=== PATIENT | female | born 1965 | race Caucasian/White ===

== ENCOUNTER 2017-06-27 23:34 | Inpatient (IN) | payer MEDICARE ==
[~2017-06-27] VITALS: Ht 162.6 cm; Wt 59.1 kg
[~2017-06-27 23:34] MED LIST: ALBUTEROL1.25 MG/3 INH; AUGMENTIN 875-11 TAB PO; B12; FOLIC ACID1 MG PO; IPRAT-ALBUT 0.5-3 ML UPD; K-DUR20 MEQ PO; MIRALAX17 GM PO; MULTI-DAY VITAM1 TAB PO; ONDANSETRON4 MG/2 M3 PO; OXYCODONE HCL10 MG PO; PEPCID20 MG PO; POTASSIUM99 M1 PO; VALIUM5 MG PO; VITAMIN B-1000 MCG/M IM; XANAX0.5 MG PO; XANAX1 MG PO; ZOFRAN4 MG PO
[2017-06-28] VITALS (13 sets, daily range): BP systolic 109–131; BP diastolic 54–87; Ht 162.6 cm; Wt 59.1 kg
[2017-06-28 00:09] LABS: BASOPHILS 0.2 % (0-2); EOSINOPHILS 3.4 % (0-7); LYMPHOCYTES 16.5 % (15-50); MCHC 25.8 g/dL (31.0-37.0); MCV 70.2 fL (80.0-100.0); MONOCYTES 11.3 % (2-11); NEUTROPHILS 68.6 % (40-80); RDW 22.8 % (11.5-14.5); WBC 4.1 10x3/uL (4.8-10.8)
[2017-06-28 00:27] LABS: HEMOGLOBIN 3.1 g/dL (12-16); MCH 18.1 pg (26.0-34.0); PLATELET COUNT 274 10x3/uL (130-400); RBC 1.71 10x6/uL (4.00-5.40)
[2017-06-28 00:39] LABS: ALBUMIN 3.1 g/dL (3.4-5.0); ALKALINE PHOSPHATASE 76 U/L (46-116); ALT (SGPT) 9 U/L (10-68); BILIRUBIN - TOTAL 0.13 mg/dL (0.2-1.3); CALC OSMOLALITY 283 mosm/kg (275-300); CALCIUM 8.1 mg/dL (8.5-10.1); CARBON DIOXIDE 22.9 mmol/L (21.0-32.0); CHLORIDE - SERUM 110 mmol/L (98-107); CREATININE - SERUM 0.8 mg/dL (0.6-1.3); GLUCOSE 89 mg/dL (74-106); POTASSIUM - SERUM 3.3 mmol/L (3.5-5.1); SODIUM 142 mmol/L (136-145); UREA NITROGEN 19 mg/dL (7-18); eGFR NON AFRICAN AMERICAN 80 mL/min (90-120)
[2017-06-28] MEDS ORDERED: NEURONTIN 300300 MG PO (03:02)
--- NOTE | 2017-06-28 10:24 | NUR ---
AT APPROXIMATELY 0730 PATIENT 2ND BLOOD TRANSFUSION WAS COMPLETE. 3RD BAG RECIEVED FROM LAB. VITAL SIGNS STABLE AND WITHIN NORMAL LIMITS.
[2017-06-28 12:04] LABS: APPEARANCE CLEAR (CLEAR); BILIRUBIN NEGATIVE (NEGATIVE); COLOR STRAW (YELLOW); GLUCOSE NEGATIVE (NEGATIVE); KETONE NEGATIVE (NEGATIVE); NITRITE NEGATIVE (NEGATIVE); PROTEIN NEGATIVE (NEGATIVE); UROBILINOGEN NORMAL (NORMAL)
--- NOTE | 2017-06-28 14:01 | NUR ---
BLOOD TRANSFUSION COMPLETE. LAB CALLED TO VERIFY ALL 3 UNITS WERE DELIVERED. VITAL SIGNS STABLE AND WITHIN NORMAL LIMITS. PATIENT RESTING QUIETLY IN BED.
--- NOTE | 2017-06-28 19:35 | NUR ---
A&O, ASSESSMENT COMPLETE, DENIES NEEDS, BED LOWEST POSITION, CALL LIGHT IN REACH, WILL CONTINUE TO MONITOR
[2017-06-29] VITALS (22 sets, daily range): BP systolic 97–137; BP diastolic 45–79
--- NOTE | 2017-06-29 02:00 | NUR ---
PT RESTING IN BED WITH NO DISTRESS. RESPIRATIONS EVEN AND UNLABORED. SIDE RAILS X 2. BED IS LOW. CALL LIGHT IN REACH.
[2017-06-29 06:25] LABS: CALC OSMOLALITY 285 mosm/kg (275-300); CALCIUM 7.7 mg/dL (8.5-10.1); CARBON DIOXIDE 26.4 mmol/L (21.0-32.0); CHLORIDE - SERUM 110 mmol/L (98-107); CREATININE - SERUM 0.6 mg/dL (0.6-1.3); GLUCOSE 114 mg/dL (74-106); POTASSIUM - SERUM 3.4 mmol/L (3.5-5.1); SODIUM 144 mmol/L (136-145); eGFR NON AFRICAN AMERICAN > 90 mL/min (90-120)
[2017-06-29 06:28] LABS: UREA NITROGEN 8 mg/dL (7-18)
[2017-06-29 06:41] LABS: BASOPHILS 0 % (0-2); EOSINOPHILS 8.5 % (0-7); IMMATURE GRANULOCYTES 0.8 % (0-5); LYMPHOCYTES 17.4 % (15-50); MCH 23.2 pg (26.0-34.0); MCHC 30.4 g/dL (31.0-37.0); MEAN PLATELET VOLUME 8.9 fL (7.4-10.4); MONOCYTES 14.6 % (2-11); NEUTROPHILS 58.7 % (40-80); PLATELET COUNT 238 10x3/uL (130-400); RDW 19.6 % (11.5-14.5); WBC 3.9 10x3/uL (4.8-10.8)
[2017-06-29 06:47] LABS: HEMATOCRIT 22.7 % (36.0-48.0); MCV 76.4 fL (80.0-100.0); RBC 2.97 10x6/uL (4.00-5.40)
[2017-06-29 06:51] LABS: HEMOGLOBIN 6.9 g/dL (12-16)
--- NOTE | 2017-06-29 08:05 | NUR ---
TRANSFUSION INITIATED. VSS. A/O X3. NO C/O
--- NOTE | 2017-06-29 08:08 | NUR ---
AWAKE AND ALERT. ORIENTED X3. NO C/O VOICED. LUNGS ARE CLEAR BILATERALLY, NO COUGH NOTED. SKIN IS INTAC WITHOUT REDNESS. RIGHT PORT PATENT WITHOUT REDNESS AT INSERTION SITE. DENIES NEEDS.
--- NOTE | 2017-06-29 08:15 | NUR ---
TRANSFUSION CONTINUES WITHOUT COMPLICATIONS. VSS.
--- NOTE | 2017-06-29 09:15 | NUR ---
TRANSFUSION CONTINUES WITHOUT DIFFICULTY. VSS.
--- NOTE | 2017-06-29 10:40 | NUR ---
TRANSFUSION COMPLETED. VSS. NO SIGNS OF REACTION.
--- NOTE | 2017-06-29 13:25 | NUR ---
REQUESTE AND GIVEN 1MG DILAUDID SLOW IVP FOR C/O ABDOMINAL PAIN LEVEL 8. WILL MONITOR. BLOOD DRAWN FOR H/H.
[2017-06-29 13:29] LABS: HEMATOCRIT 25.1 % (36.0-48.0); HEMOGLOBIN 7.8 g/dL (12-16)
--- NOTE | 2017-06-29 15:17 | NUR ---
SECOND UNIT PRBC UP AT THIS TIME. VSS.
--- NOTE | 2017-06-29 15:30 | NUR ---
TRANSFUSION CONTINUES WITHOUT SIGNS OF REACTIONS. VSS.
--- NOTE | 2017-06-29 16:30 | NUR ---
TRANSFUSION CONTINUES WITHOUT DIFFICULTY. VSS.
--- NOTE | 2017-06-29 17:30 | NUR ---
FRIENDS BROUGHT IN FOOD. ATE ALL OF MEAL. TRANSFUSIONS CONTINUES WITHOUT DIFFICULTY. VSS.
--- NOTE | 2017-06-29 17:45 | NUR ---
TRANSFUSION COMPLETED WITHOUT REACTIONS.
--- NOTE | 2017-06-29 18:19 | NUR ---
GIVEN 4MG MORPHINE SLOW IVP PROIR TO SUPPER FOR C/O RIGHT SHOULDER NECK PAIN. WILL MONITOR. ATE ALL OF SUPPER HE WANTED. DENIES NEEDS. NO CHANGES NOTED.
--- NOTE | 2017-06-29 19:29 | NUR ---
ANDREE PATIENT'S BLOOD VIA HER PORT. PORT IS DIFFICULT TO DRAW AND FLUSH. PATIENT RESTING IN BED AND DENIES NEEDS AT THIS TIME. BED IN LOWEST POSITION AND CALL LIGHT WITHIN REACH. ENCOURAGED THE PATIENT TO CALL IF SHE HAS NEEDS.
[2017-06-29 19:46] LABS: HEMATOCRIT 30.7 % (36.0-48.0); HEMOGLOBIN 9.4 g/dL (12-16)
[2017-06-30 04:24] VITALS: BP 140/82
[2017-06-30 07:01] LABS: BASOPHILS 0.2 % (0-2); EOSINOPHILS 6.8 % (0-7); HEMATOCRIT 31.8 % (36.0-48.0); IMMATURE GRANULOCYTES 0.2 % (0-5); LYMPHOCYTES 14.3 % (15-50); MCH 24.9 pg (26.0-34.0); MCHC 31.4 g/dL (31.0-37.0); MONOCYTES 14.4 % (2-11); NEUTROPHILS 64.1 % (40-80); PLATELET COUNT 191 10x3/uL (130-400); RDW 19.1 % (11.5-14.5)
[2017-06-30 07:04] LABS: MCV 79.3 fL (80.0-100.0); RBC 4.01 10x6/uL (4.00-5.40); WBC 5.3 10x3/uL (4.8-10.8)
[2017-06-30 07:34] LABS: ALBUMIN 2.6 g/dL (3.4-5.0); ALKALINE PHOSPHATASE 86 U/L (46-116); ALT (SGPT) 10 U/L (10-68); BILIRUBIN - TOTAL 0.17 mg/dL (0.2-1.3); CALC OSMOLALITY 281 mosm/kg (275-300); CALCIUM 7.5 mg/dL (8.5-10.1); CARBON DIOXIDE 24.7 mmol/L (21.0-32.0); CHLORIDE - SERUM 110 mmol/L (98-107); CREATININE - SERUM 0.6 mg/dL (0.6-1.3); GLUCOSE 90 mg/dL (74-106); POTASSIUM - SERUM 4.1 mmol/L (3.5-5.1); PROTEIN - SERUM 5.3 g/dL (6.4-8.2); SODIUM 142 mmol/L (136-145); eGFR NON AFRICAN AMERICAN > 90 mL/min (90-120)
[2017-06-30 07:45] LABS: UREA NITROGEN 11 mg/dL (7-18)
--- NOTE | 2017-06-30 08:00 | NUR ---
ASSESSMENT PER FLOW SHEET.PT WITHOUT DISTRESS.CALL LIGHT IN REACH
[2017-06-30 08:20] VITALS: BP 142/73
--- NOTE | 2017-06-30 12:03 | NUR ---
DISCHARGE INSTRUCTIONS,STATES UNDERSTANDING.PORT FLUSHED WITH SALINE AND FLUSHED WITH HEPARIN PER PROTOCOL.
[2017-06-30 12:17] VITALS: BP 119/70
--- NOTE | 2017-06-30 12:49 | NUR ---
LEFT UNIT VIA WHEELCHAIR
== END 2017-06-30 12:49 | disposition home or self-care (01) | DRG 812 ==
LOC: D.ER 23:34 → D.MS 06-28 01:07
PROVIDERS: Emergency Medicine; Internal Medicine Hematology & Oncology; ADMIT Family Medicine
DX: D64.9 Anemia, unspecified (principal); D46.9 Myelodysplastic syndrome, unspecified; G89.29 Other chronic pain; K59.00 Constipation, unspecified

== ENCOUNTER 2017-08-10 01:04 | Observation (INO) | payer MEDICARE ==
[2017-06-28 16:35] VITALS: BMI 22.3
--- NOTE | ~2017-08-10 | HP ---
PATIENT: VIKAS SHERWOOD MEDICAL RECORD: [id number] ACCOUNT: [id number] LOCATION:[place] : 63 ADMISSION DATE: 08/10/17 HISTORY AND PHYSICAL EXAMINATION HISTORY OF PRESENT ILLNESS: Ms. Sherwood is a 52-year-old white female with no myelodysplastic syndrome with experiencing increased shortness of breath and swelling over the last few days. Her primary care physician is Dr. Parrish in [place] and she sees an oncologist there. She was admitted here last month for similar type complaints. Her hemoglobin upon admission this evening is 3.1 about where it was last time. She is being admitted for transfusion. PAST MEDICAL HISTORY: Significant for known myelodysplastic syndrome. PAST SURGICAL HISTORY: She has had a hysterectomy in 2001, breast implants with implants out with subsequent removal, thumb surgery, port access to left chest. ALLERGIES OR INTOLERANCES: Include TRAMADOL, CODEINE, DIPHENHYDRAMINE, KETOROLAC, COMPAZINE. HOME MEDICATIONS: Potassium 20 mEq b.i.d., multivitamin, Roxicodone 15 mg q.6 hours, Zofran p.r.n. FAMILY HISTORY: Noncontributory. SOCIAL HISTORY: The patient had recently moved back to [facility], but her primary care and translator interpreter/oncologist are still in [place]. REVIEW OF SYSTEMS: She denies fever. She does complain of increasing weakness and fatigue. No chest pain, but shortness of breath and bilateral swelling. PHYSICAL EXAMINATION: GENERAL: She is in no acute distress. She does complain of generalized pain. NECK: Soft and supple. HEART: Regular. LUNGS: Clear. ABDOMEN: Soft. EXTREMITIES: Lower extremities reveal no edema. She does have a rash on her trunk. IMPRESSION: Myelodysplastic syndrome with severe anemia with a hemoglobin of 3.1. PLAN: Transfuse to 8. We will diurese in between. Triamcinolone ointment for rash. We will be following up with her regular primary care physician and oncologist upon discharge. TRANSINT:[id number] Voice Confirmation ID: [id number] DOCUMENT ID: [id number] HISTORY AND PHYSICAL [id number] VIKAS SHERWOOD LATOSHA AGUILA DO at 1144 CC: [id number] DICTATION DATE: 08/10/17 0956 BAKERY WORKER: 08/10/17 1113 [facility] [address] [place], [facility]
[~2017-08-10 01:04] MED LIST changes: +NEURONTIN 300300 MG PO
[2017-08-10 01:56] LABS: BASOPHILS 0 % (0-2); EOSINOPHILS 4.1 % (0-7); IMMATURE GRANULOCYTES 0.2 % (0-5); LYMPHOCYTES 14.6 % (15-50); MCHC 24.8 g/dL (31.0-37.0); MCV 70.6 fL (80.0-100.0); MEAN PLATELET VOLUME 8.9 fL (7.4-10.4); MONOCYTES 13.7 % (2-11); NEUTROPHILS 67.4 % (40-80); RDW 20.8 % (11.5-14.5); WBC 4.1 10x3/uL (4.8-10.8)
[2017-08-10 02:04] LABS: HEMATOCRIT 12.5 % (36.0-48.0); HEMOGLOBIN 3.1 g/dL (12-16); MCH 17.5 pg (26.0-34.0); PLATELET COUNT 391 10x3/uL (130-400); RBC 1.77 10x6/uL (4.00-5.40)
[2017-08-10 02:07] LABS: ALBUMIN 2.7 g/dL (3.4-5.0); ALKALINE PHOSPHATASE 81 U/L (46-116); ALT (SGPT) 12 U/L (10-68); CALC OSMOLALITY 279 mosm/kg (275-300); CALCIUM 7.4 mg/dL (8.5-10.1); CARBON DIOXIDE 25.2 mmol/L (21.0-32.0); CHLORIDE - SERUM 108 mmol/L (98-107); CREATININE - SERUM 0.6 mg/dL (0.6-1.3); GLUCOSE 98 mg/dL (74-106); POTASSIUM - SERUM 3.2 mmol/L (3.5-5.1); SODIUM 141 mmol/L (136-145); UREA NITROGEN 10 mg/dL (7-18); eGFR NON AFRICAN AMERICAN > 90 mL/min (90-120)
[2017-08-10 12:19] LABS: APPEARANCE CLEAR (CLEAR); BILIRUBIN NEGATIVE (NEGATIVE); COLOR YELLOW (YELLOW); GLUCOSE NEGATIVE (NEGATIVE); KETONE NEGATIVE (NEGATIVE); NITRITE NEGATIVE (NEGATIVE); PROTEIN NEGATIVE (NEGATIVE); UROBILINOGEN NORMAL (NORMAL)
[2017-08-10 12:24] LABS: RED CELLS - URINE 0-5 /hpf (0-5); WHITE CELLS - URINE 0-5 /hpf (0-5)
[2017-08-10 12:26] LABS: BACTERIA MODERATE /hpf (NONE SEEN); EPITHELIAL CELLS 0-5 /hpf (0-5)
[2017-08-10 12:30] LABS: MUCUS <1+ /lpf (NONE SEEN)
[2017-08-10 15:35] LABS: BASOPHILS 0.3 % (0-2); EOSINOPHILS 6.7 % (0-7); IMMATURE GRANULOCYTES 0.3 % (0-5); LYMPHOCYTES 15.2 % (15-50); MCH 23.3 pg (26.0-34.0); MCHC 30.5 g/dL (31.0-37.0); MEAN PLATELET VOLUME 9.2 fL (7.4-10.4); MONOCYTES 12.3 % (2-11); NEUTROPHILS 65.2 % (40-80); PLATELET COUNT 361 10x3/uL (130-400); RDW 20.3 % (11.5-14.5); WBC 3.9 10x3/uL (4.8-10.8)
[2017-08-10 15:37] LABS: HEMATOCRIT 24.3 % (36.0-48.0); MCV 76.7 fL (80.0-100.0); RBC 3.17 10x6/uL (4.00-5.40)
[2017-08-10 15:38] LABS: HEMOGLOBIN 7.7 g/dL (12-16)
[2017-08-10 21:30] VITALS: BP 135/66
[2017-08-11 01:13] VITALS: BP 118/68
[2017-08-11 05:25] VITALS: BP 121/74
[2017-08-11 07:58] VITALS: BP 133/76
[2017-08-11 08:32] LABS: BASOPHILS 0 % (0-2); EOSINOPHILS 5.4 % (0-7); HEMATOCRIT 29.1 % (36.0-48.0); IMMATURE GRANULOCYTES 0.3 % (0-5); LYMPHOCYTES 7.6 % (15-50); MCH 24.5 pg (26.0-34.0); MCHC 30.9 g/dL (31.0-37.0); MEAN PLATELET VOLUME 9.5 fL (7.4-10.4); MONOCYTES 9.9 % (2-11); NEUTROPHILS 76.8 % (40-80); PLATELET COUNT 361 10x3/uL (130-400); RBC 3.67 10x6/uL (4.00-5.40)
[2017-08-11 08:47] LABS: MCV 79.3 fL (80.0-100.0); WBC 6.5 10x3/uL (4.8-10.8)
[2017-08-11 12:26] VITALS: BP 114/67
[2017-08-11] MEDS ORDERED: KENALOG 0.1 % O15 GM TOPICAL (13:31)
== END 2017-08-11 14:23 | disposition home or self-care (01) ==
LOC: D.ER 01:04 → D.MS 16:19 → OBSVTIME 16:19 → D.MS 08-11 14:23
PROVIDERS: Family Medicine
DX: D46.9 Myelodysplastic syndrome, unspecified (principal); K59.00 Constipation, unspecified; G89.29 Other chronic pain

== ENCOUNTER 2017-08-31 16:18 | Observation (INO) | payer MEDICARE | END 2017-09-02 15:13 | disposition home or self-care (01) | LOC: D.ER 16:18 → D.SDCHOLD 19:04 → D.MS 20:20 | DX: D64.9 Anemia, unspecified (principal); D46.9 Myelodysplastic syndrome, unspecified ==

== ENCOUNTER 2017-09-29 18:59 | Inpatient (IN) | payer MEDICARE ==
[2017-09-01 12:35] VITALS: BMI 22.3
--- NOTE | ~2017-09-29 | HP ---
PATIENT: VIKAS ESCOBEDO MEDICAL RECORD: [id number] ACCOUNT: [id number] LOCATION:[facility]- : 63 ADMISSION DATE: 09/29/17 HISTORY AND PHYSICAL EXAMINATION DATE OF ADMISSION: 09/29/2017 CHIEF COMPLAINT: Fatigue, weakness. HISTORY OF PRESENT ILLNESS: The patient is a 52-year-old female with longstanding history of having myelodysplasia syndrome. The patient states she has had over 4 units packed red blood cells over the past 7 years. She states that she has become increasingly weak. She apparently had been living in [place], had moved to [place] to be with her mother, and presents to the Emergency Room for evaluation. The patient was found to be profoundly anemic and it was felt the patient should be admitted. PAST MEDICAL HISTORY: She has had a history of having G1, P1. She has had an umbilical hernia repair. She has also had breast augmentation. She has had these since removed. She has also had dental implants which have been removed. She does report having chronic back pain as well as bone pain and problems with anxiety as well. FAMILY HISTORY: Father of pancreatic cancer in his 60. Mother apparently is still living. HABITS: She states that she stopped smoking some 7 years ago, has been occasional consumer of alcoholic beverages. MEDICATIONS: Include gabapentin 300 mg 1 p.o. b.i.d., oxycodone 15 mg q.4 hours p.r.n. pain, Valium 10 mg 1 every 8 hours p.r.n. anxiety, potassium chloride 20 mEq 1 p.o. b.i.d., triamcinolone applied topically sparingly b.i.d. ALLERGIES: COMPAZINE, CODEINE. SOCIAL HISTORY: The patient is . She is a mother of 1. Currently, is unemployed. She states that she is medically disabled. REVIEW OF SYSTEMS: CONSTITUTIONAL: She denies any headaches, seizures, or syncope. She denies change in visual or auditory acuity. PULMONARY: She has reported increasing shortness of breath. No cough, no congestion. CARDIOVASCULAR: She had no chest pain, palpitations, PND or orthopnea. GASTROINTESTINAL: No chronic nausea, vomiting, melena or hematochezia. GENITOURINARY: No urgency, frequency, or dysuria. PHYSICAL EXAMINATION: GENERAL: In the Emergency Room, the patient's temperature is 97.7, pulse 103, respirations 20, blood pressure 144/70. HEENT: Head is normocephalic. No lesions. Ears: TMs clear. Eyes: Pupils equal, round, reactive to light. Extraocular movements are intact. Nasal cavity, oral cavity and oropharynx clear. NECK: Supple. There is no adenopathy. HEART: Slight tachycardic. HISTORY AND PHYSICAL [id number] SCALLION,VIKAS A LUNGS: Clear. ABDOMEN: Soft, bowel sounds are positive. No organomegaly. EXTREMITIES: Lower extremities have trace pretibial edema. LABORATORY DATA: The patient had EKG showing normal sinus rhythm, rate was 90. Initially RBCs were 1.7. She had a hemoglobin 2.9, hematocrit was 11.9. Her platelets were 351. She had low MCV, MCHC. Also, she had sodium of 139, potassium 3.1, chloride 108, CO2 of 23.8, BUN9, creatinine 0.5, and blood sugar 119. Her albumin was low at 2.6. ASSESSMENT: Profound anemia felt to be secondary to myelodysplasia syndrome, history of inguinal hernia repair, history of bilateral breast augmentation with removal, history of dental implants with removal, chronic pain, and anxiety. PLAN: The patient will be admitted, typed and crossed and transfused. Continue to evaluate. TRANSINT:[id number] Voice Confirmation ID: [id number] DOCUMENT ID: [id number] ALBA BOWIE MD at 0719 CC: [id number] DICTATION DATE: 09/30/17 0643 SIFTING OPERATOR: 09/30/17 0958 DIS IN 09/30/17 [place] [id number] [place] [id number]
[~2017-09-29 18:59] MED LIST changes: +KENALOG 0.1 % O15 GM TOPICAL
[2017-09-29 20:19] LABS: APPEARANCE CLEAR (CLEAR); BILIRUBIN NEGATIVE (NEGATIVE); COLOR YELLOW (YELLOW); GLUCOSE NEGATIVE (NEGATIVE); KETONE NEGATIVE (NEGATIVE); NITRITE NEGATIVE (NEGATIVE); PH 6.5 (5.0-6.0); PROTEIN NEGATIVE (NEGATIVE); UROBILINOGEN NORMAL (NORMAL)
[2017-09-29 20:20] LABS: RED CELLS - URINE OCC /hpf (0-5); WHITE CELLS - URINE 0-5 /hpf (0-5)
[2017-09-29 20:21] LABS: BACTERIA MODERATE /hpf (NONE SEEN)
[2017-09-29 21:05] LABS: BASOPHILS 0 % (0-2); EOSINOPHILS 9.4 % (0-7); IMMATURE GRANULOCYTES 0.3 % (0-5); LYMPHOCYTES 18.5 % (15-50); MCHC 24.4 g/dL (31.0-37.0); MEAN PLATELET VOLUME 8.5 fL (7.4-10.4); MONOCYTES 14.1 % (2-11); NEUTROPHILS 57.7 % (40-80); RDW 22.3 % (11.5-14.5)
[2017-09-29 21:09] LABS: HEMATOCRIT 11.9 % (36.0-48.0); HEMOGLOBIN 2.9 g/dL (12-16); MCH 17.1 pg (26.0-34.0); PLATELET COUNT 351 10x3/uL (130-400)
[2017-09-29 21:16] LABS: ALBUMIN 2.6 g/dL (3.4-5.0); ALKALINE PHOSPHATASE 85 U/L (46-116); ALT (SGPT) 10 U/L (10-68); BILIRUBIN - TOTAL 0.11 mg/dL (0.2-1.3); CALC OSMOLALITY 277 mosm/kg (275-300); CALCIUM 7.8 mg/dL (8.5-10.1); CARBON DIOXIDE 23.8 mmol/L (21.0-32.0); CHLORIDE - SERUM 108 mmol/L (98-107); CREATININE - SERUM 0.6 mg/dL (0.6-1.3); GLUCOSE 119 mg/dL (74-106); POTASSIUM - SERUM 3.1 mmol/L (3.5-5.1); SODIUM 139 mmol/L (136-145); UREA NITROGEN 9 mg/dL (7-18); eGFR NON AFRICAN AMERICAN > 90 mL/min (90-120)
== END 2017-09-30 07:16 | disposition left against medical advice (07) | DRG 812 ==
LOC: D.ER 18:59 → D.EDHOLD 21:56
PROVIDERS: Family Medicine
DX: D46.4 Refractory anemia, unspecified (principal); F41.9 Anxiety disorder, unspecified; G89.29 Other chronic pain; Z87.891 Personal history of nicotine dependence

== ENCOUNTER 2018-06-09 21:40 | Inpatient (IN) | payer MEDICARE ==
[~2018-06-09] VITALS: Ht 162.6 cm; Wt 59.1 kg
--- NOTE | ~2018-06-09 | MORECARE ---
CASE MANAGEMENT DISCHARGE SUMMARY PATIENT: VIKAS ESCOBEDO UNIT: [id number] ADM DATE: 06/10/18 AGE: 52 : 63 SEX: F ROOM/BED: D.2228 AUTHOR: LINDA,DOC PHYSICIAN: REFERRING PHYSICIAN: FABY RAMOS MD DATE OF SERVICE: 06/10/18 Discharge Plan Patient Name: VIKAS ESCOBEDO Facility: [facility]:[place] : 1965 Planned Disposition: Home Anticipated Discharge Date: Discharge Date: Expected LOS: Initial Reviewer: [email or web address] Initial Review Date: 06/10/2018 Generated: 06/10/18 12:08 pm Comments DCP- Discharge Planning Updated by [email or web address]: Dee Weiss on 06/10/18 10:[address] Patient Name: VIKAS ESCOBEDO Admission Status: ER Accout number: [id number] Admission Date: 06-10-2018 : 1965 Admission Diagnosis: Attending: FABY RAMOS Current LOS: 1 Anticipated DC Date: Planned Disposition: Home Primary Insurance: MEDICARE A & B Discharge Planning Comments: CM met with patient, she is alone in the room. States she lives with her mother and is independent with all ADL's and IADL's. States she has a headache now and will meet later if I would like. States she does not know of any needs. CM will continue to follow and assist with discharge planning/needs. Sample Distributor: Dee Weiss DCPIA - Discharge Planning Initial Assessment Updated by [email or web address]: Dee Weiss on 06/10/18 11:00 am * Is the patient Alert and Oriented? Yes * How many steps to enter\exit or inside your home? 0/0 * Preadmission Environment Home with Family * ADLs Independent * Equipment None * List name and contact numbers for known caregivers / representatives who currently or will assist patient after discharge: LIO REHMAN - MOTHER - [phone] * Verbal permission to speak to the caregivers and representatives has been obtained from the patient. Yes * Community resources currently utilized None * Additional services required to return to the preadmission environment? No * Can the patient safely return to the preadmission environment? Yes * Has this patient been hospitalized within the prior 30 days at any hospital? No Last DP export: 06/10/18 10:01 Patient Name: VIKAS ESCOBEDO Page 64045 at 1108 All edits/amendments must be made on the electronic document DICTATION DATE: 06/10/181106 UROLOGIST MD: RAFA 06/10/181106 RPT#: [id number] DC DATE: STATUS: ADM IN [facility] [address] [place] [address] END OF REPORT
--- NOTE | ~2018-06-09 | MORECARE ---
CASE MANAGEMENT DISCHARGE SUMMARY PATIENT: VIKAS ESCOBEDO UNIT: [id number] ADM DATE: 06/10/18 AGE: 52 : 63 SEX: F ROOM/BED: D.2228 AUTHOR: TORREY MCKEON PHYSICIAN: REFERRING PHYSICIAN: FABY RAMOS MD DATE OF SERVICE: 06/10/18 Discharge Plan Patient Name: VIKAS ESCOBEDO Facility: [facility]:[place] : 1965 Planned Disposition: Home Anticipated Discharge Date: Discharge Date: Expected LOS: Initial Reviewer: [email or web address] Initial Review Date: 06/10/2018 Generated: 06/10/18 12:01 pm DCPIA - Discharge Planning Initial Assessment Updated by [email or web address]: Dee Weiss on 06/10/18 11:00 am * Is the patient Alert and Oriented? Yes * How many steps to enter\exit or inside your home? 0/0 * Preadmission Environment Home with Family * ADLs Independent * Equipment None * List name and contact numbers for known caregivers / representatives who currently or will assist patient after discharge: LIO REHMAN [facility] [phone] * Verbal permission to speak to the caregivers and representatives has been obtained from the patient. Yes * Community resources currently utilized None * Additional services required to return to the preadmission environment? No * Can the patient safely return to the preadmission environment? Yes * Has this patient been hospitalized within the prior 30 days at any hospital? No Patient Name: VIKAS ESCOBEDO Page 92556 at 1101 All edits/amendments must be made on the electronic document DICTATION DATE: 06/10/18 1100 BANKING PIN ADJUSTER: RAFA 06/10/18 1100 RPT#: [id number] DC DATE: STATUS: ADM IN [facility] [address] [place] [address] END OF REPORT
--- NOTE | ~2018-06-09 | MORECARE ---
CASE MANAGEMENT DISCHARGE SUMMARY PATIENT: VIKAS ESCOBEDO UNIT: [id number] ADM DATE: 06/10/18 AGE: 52 : 63 SEX: F ROOM/BED: D.2228 AUTHOR: LINDA,DOC PHYSICIAN: REFERRING PHYSICIAN: FABY RAMOS MD DATE OF SERVICE: 06/14/18 Discharge Plan Patient Name: IVKAS ESCOBEDO Facility: [facility]:[place] : 1965 Planned Disposition: Home Anticipated Discharge Date: Discharge Date: 06/12/2018 Expected LOS: 0 Initial Reviewer: [email or web address] Initial Review Date: 06/10/2018 Generated: 06/14/18 12:45 pm Comments DCP- Discharge Planning Updated by [email or web address]: Dee Weiss on 06/10/18 10:[address] Patient Name: VIKAS ESCOBEDO Admission Status: ER Accout number: [id number] Admission Date: 06-10-2018 : 1965 Admission Diagnosis: Attending: FABY RAMOS Current LOS: 1 Anticipated DC Date: Planned Disposition: Home Primary Insurance: MEDICARE A & B Discharge Planning Comments: CM met with patient, she is alone in the room. States she lives with her mother and is independent with all ADL's and IADL's. States she has a headache now and will meet later if I would like. States she does not know of any needs. CM will continue to follow and assist with discharge planning/needs. Supervisor Metalizing: Dee Weiss DCPIA - Discharge Planning Initial Assessment Updated by [email or web address]: Dee Weiss on 06/10/18 11:00 am * Is the patient Alert and Oriented? Yes * How many steps to enter\exit or inside your home? 0/0 * Preadmission Environment Home with Family * ADLs Independent * Equipment None * List name and contact numbers for known caregivers / representatives who currently or will assist patient after discharge: LIO REHMAN - MOTHER - [phone] * Verbal permission to speak to the caregivers and representatives has been obtained from the patient. Yes * Community resources currently utilized None * Additional services required to return to the preadmission environment? No * Can the patient safely return to the preadmission environment? Yes * Has this patient been hospitalized within the prior 30 days at any hospital? No Last DP export: 06/10/18 10:08 Patient Name: VIKAS ESCOBEDO Page 60877 at 1145 All edits/amendments must be made on the electronic document DICTATION DATE: 06/14/18 1145 COOKY PACKER: RAFA 06/14/18 1145 RPT#: [id number] DC DATE:06/12/18 STATUS: DIS IN [facility] [address] [place] [address] END OF REPORT
[2018-06-09 22:24] LABS: BASOPHILS 0 % (0-2); EOSINOPHILS 4.5 % (0-7); IMMATURE GRANULOCYTES 0.3 % (0-5); LYMPHOCYTES 14.5 % (15-50); MCHC 25.2 g/dL (31.0-37.0); MCV 71.5 fL (80.0-100.0); MEAN PLATELET VOLUME 8.1 fL (7.4-10.4); MONOCYTES 13.5 % (2-11); NEUTROPHILS 67.2 % (40-80); PLATELET COUNT 345 10x3/uL (130-400); RDW 21.6 % (11.5-14.5); WBC 2.9 10x3/uL (4.8-10.8)
[2018-06-09 22:27] LABS: RBC 1.72 10x6/uL (4.00-5.40)
[2018-06-09 22:28] LABS: HEMOGLOBIN 3.1 g/dL (12-16)
[2018-06-09 22:29] LABS: ALBUMIN 2.5 g/dL (3.4-5.0); ALKALINE PHOSPHATASE 74 U/L (46-116); ALT (SGPT) 11 U/L (10-68); BILIRUBIN - TOTAL 0.07 mg/dL (0.2-1.3); CALC OSMOLALITY 283 mosm/kg (275-300); CALCIUM 7.5 mg/dL (8.5-10.1); CARBON DIOXIDE 26.7 mmol/L (21.0-32.0); CHLORIDE - SERUM 109 mmol/L (98-107); CREATININE - SERUM 0.8 mg/dL (0.6-1.3); GLUCOSE 100 mg/dL (74-106); HEMATOCRIT 12.3 % (36.0-48.0); POTASSIUM - SERUM 3.4 mmol/L (3.5-5.1); PROTEIN - SERUM 5.3 g/dL (6.4-8.2); SODIUM 143 mmol/L (136-145); UREA NITROGEN 11 mg/dL (7-18); eGFR NON AFRICAN AMERICAN 79 mL/min (90-120)
[2018-06-09 23:57] VITALS: BP 112/55; BMI 22.3
[2018-06-10] VITALS (14 sets, daily range): BP systolic 98–142; BP diastolic 52–81
[2018-06-10 09:44] LABS: BASOPHILS 0 % (0-2); EOSINOPHILS 3.3 % (0-7); HEMATOCRIT 23.2 % (36.0-48.0); LYMPHOCYTES 12.1 % (15-50); MCH 24.7 pg (26.0-34.0); MCHC 31.5 g/dL (31.0-37.0); MCV 78.4 fL (80.0-100.0); MEAN PLATELET VOLUME 8.3 fL (7.4-10.4); MONOCYTES 16.1 % (2-11); NEUTROPHILS 68.5 % (40-80); PLATELET COUNT 266 10x3/uL (130-400); RBC 2.96 10x6/uL (4.00-5.40); RDW 19.5 % (11.5-14.5); WBC 3.1 10x3/uL (4.8-10.8)
[2018-06-10 09:46] LABS: HEMOGLOBIN 7.3 g/dL (12-16)
[2018-06-10 09:54] LABS: % SATURATION 44 % (15-55); IRON 140 ug/dl (35-150); TOTAL IRON BIND CAPACITY 317 ug/dl (260-445); UNSAT IRON BIND CAPACITY 177 ug/dl (150-375)
[2018-06-10 10:10] LABS: GLUCOSE 104 mg/dL (74-106)
[2018-06-10 10:11] LABS: CALC OSMOLALITY 284 mosm/kg (275-300); CALCIUM 7.4 mg/dL (8.5-10.1); CARBON DIOXIDE 26.4 mmol/L (21.0-32.0); CHLORIDE - SERUM 109 mmol/L (98-107); CREATININE - SERUM 0.6 mg/dL (0.6-1.3); POTASSIUM - SERUM 3.1 mmol/L (3.5-5.1); SODIUM 144 mmol/L (136-145); UREA NITROGEN 8 mg/dL (7-18); eGFR NON AFRICAN AMERICAN > 90 mL/min (90-120)
[2018-06-10 14:21] LABS: HEMATOCRIT 27.3 % (36.0-48.0); HEMOGLOBIN 8.6 g/dL (12-16)
[2018-06-11 00:24] VITALS: BP 146/86
[2018-06-11 04:50] LABS: BASOPHILS 0.3 % (0-2); HEMATOCRIT 26.6 % (36.0-48.0); HEMOGLOBIN 8.3 g/dL (12-16); LYMPHOCYTES 14.5 % (15-50); MCH 24.9 pg (26.0-34.0); MCHC 31.2 g/dL (31.0-37.0); MCV 79.6 fL (80.0-100.0); MEAN PLATELET VOLUME 9.1 fL (7.4-10.4); MONOCYTES 19.8 % (2-11); NEUTROPHILS 57.4 % (40-80); PLATELET COUNT 253 10x3/uL (130-400); RBC 3.34 10x6/uL (4.00-5.40); RDW 19.7 % (11.5-14.5); WBC 3.4 10x3/uL (4.8-10.8)
[2018-06-11 04:56] VITALS: BP 133/77
[2018-06-11 04:57] LABS: CALC OSMOLALITY 280 mosm/kg (275-300); CARBON DIOXIDE 29.1 mmol/L (21.0-32.0); CHLORIDE - SERUM 107 mmol/L (98-107); CREATININE - SERUM 0.6 mg/dL (0.6-1.3); GLUCOSE 99 mg/dL (74-106); POTASSIUM - SERUM 3.6 mmol/L (3.5-5.1); SODIUM 142 mmol/L (136-145); UREA NITROGEN 7 mg/dL (7-18); eGFR NON AFRICAN AMERICAN > 90 mL/min (90-120)
[2018-06-11 09:10] VITALS: BP 106/60
[2018-06-11 12:13] VITALS: BP 114/66
[2018-06-11 12:58] VITALS: Ht 162.6 cm; Wt 59.1 kg
[2018-06-11 14:44] VITALS: BP 130/76
[2018-06-11 15:23] LABS: % SATURATION 3 % (15-55); IRON 13 ug/dl (35-150); TOTAL IRON BIND CAPACITY 359 ug/dl (260-445); UNSAT IRON BIND CAPACITY 346 ug/dl (150-375)
[2018-06-11 20:47] VITALS: BP 117/70
[2018-06-12 01:03] VITALS: BP 120/69
[2018-06-12 05:23] LABS: BASOPHILS 0 % (0-2); HEMATOCRIT 28.4 % (36.0-48.0); HEMOGLOBIN 8.8 g/dL (12-16); IMMATURE GRANULOCYTES 0.4 % (0-5); LYMPHOCYTES 23.5 % (15-50); MCH 24.9 pg (26.0-34.0); MCV 80.5 fL (80.0-100.0); MEAN PLATELET VOLUME 8.9 fL (7.4-10.4); MONOCYTES 23.1 % (2-11); RBC 3.53 10x6/uL (4.00-5.40); RDW 20.8 % (11.5-14.5); WBC 2.7 10x3/uL (4.8-10.8)
[2018-06-12 05:25] LABS: PLATELET COUNT 194 10x3/uL (130-400)
[2018-06-12 05:58] VITALS: BP 122/71
[2018-06-12 05:58] LABS: CALC OSMOLALITY 279 mosm/kg (275-300); CARBON DIOXIDE 30.5 mmol/L (21.0-32.0); CHLORIDE - SERUM 106 mmol/L (98-107); CREATININE - SERUM 0.6 mg/dL (0.6-1.3); GLUCOSE 96 mg/dL (74-106); POTASSIUM - SERUM 3.8 mmol/L (3.5-5.1); SODIUM 141 mmol/L (136-145); eGFR NON AFRICAN AMERICAN > 90 mL/min (90-120)
[2018-06-12 06:00] LABS: UREA NITROGEN 11 mg/dL (7-18)
[2018-06-12 11:28] VITALS: BP 126/72
== END 2018-06-12 17:32 | disposition home or self-care (01) | DRG 812 ==
LOC: D.ER 21:40 → OBSVTIME 22:36 → D.EDHOLD 22:36 → D.MS 22:42
PROVIDERS: Family Medicine; Internal Medicine Nephrology
DX: D46.4 Refractory anemia, unspecified (principal); D46.9 Myelodysplastic syndrome, unspecified; G89.4 Chronic pain syndrome; R55 Syncope and collapse

== ENCOUNTER 2018-06-30 22:50 | Observation (INO) | payer MEDICARE ==
[~2018-06-30] VITALS: Ht 162.6 cm; Wt 57.3 kg
--- NOTE | ~2018-06-30 | MORECARE ---
CASE MANAGEMENT DISCHARGE SUMMARY PATIENT: VIKAS ESCOBEDO UNIT: [id number] ADM DATE: 06/30/18 AGE: 52 : 63 SEX: F ROOM/BED: D.2114 AUTHOR: TORREY MCKEON PHYSICIAN: REFERRING PHYSICIAN: MONICA BOWERS MD DATE OF SERVICE: 07/04/18 Discharge Plan Patient Name: VIKAS ESCOBEDO Facility: [facility]:[place] : 1965 Planned Disposition: Home Anticipated Discharge Date: 07/02/18 Discharge Date: 07/02/2018 Expected LOS: 2 Initial Reviewer: [email or web address] Initial Review Date: 07/04/2018 Generated: 07/04/18 12:18 pm Patient Name: VIKAS ESCOBEDO Page 50070 at 1118 All edits/amendments must be made on the electronic document DICTATION DATE: 07/04/18 111 COMPANION CAREGIVER: RAFA 07/04/18 111 RPT#: [id number] DC DATE:07/02/18 STATUS: DIS IN [facility] [address] [place] [address] END OF REPORT
[2018-06-30 23:28] LABS: BASOPHILS 0.4 % (0-2); EOSINOPHILS 3.7 % (0-7); MCH 20.4 pg (26.0-34.0); MCHC 27.2 g/dL (31.0-37.0); MCV 74.9 fL (80.0-100.0); MEAN PLATELET VOLUME 8.3 fL (7.4-10.4); MONOCYTES 19.9 % (2-11); RDW 22.2 % (11.5-14.5); WBC 2.5 10x3/uL (4.8-10.8)
[2018-06-30 23:32] LABS: HEMATOCRIT 12.5 % (36.0-48.0); HEMOGLOBIN 3.4 g/dL (12-16); PLATELET COUNT 896 10x3/uL (130-400); RBC 1.67 10x6/uL (4.00-5.40)
[2018-06-30 23:49] LABS: ALBUMIN 2.3 g/dL (3.4-5.0); ALKALINE PHOSPHATASE 57 U/L (46-116); ALT (SGPT) 10 U/L (10-68); BILIRUBIN - TOTAL 0.11 mg/dL (0.2-1.3); CALC OSMOLALITY 278 mosm/kg (275-300); CALCIUM 7.2 mg/dL (8.5-10.1); CARBON DIOXIDE 26.7 mmol/L (21.0-32.0); CHLORIDE - SERUM 104 mmol/L (98-107); CREATININE - SERUM 0.5 mg/dL (0.6-1.3); GLUCOSE 90 mg/dL (74-106); POTASSIUM - SERUM 3.1 mmol/L (3.5-5.1); PROTEIN - SERUM 5.1 g/dL (6.4-8.2); SODIUM 141 mmol/L (136-145); UREA NITROGEN 7 mg/dL (7-18); eGFR NON AFRICAN AMERICAN > 90 mL/min (90-120)
[2018-07-01] VITALS (15 sets, daily range): BP systolic 105–138; BP diastolic 53–77; Ht 162.6 cm; Wt 57.3 kg
[2018-07-01 10:14] LABS: BASOPHILS 0.3 % (0-2); EOSINOPHILS 5.7 % (0-7); IMMATURE GRANULOCYTES 0.3 % (0-5); LYMPHOCYTES 20.3 % (15-50); MCH 25.5 pg (26.0-34.0); MCHC 31.9 g/dL (31.0-37.0); MEAN PLATELET VOLUME 8.8 fL (7.4-10.4); MONOCYTES 18.7 % (2-11); NEUTROPHILS 54.7 % (40-80); PLATELET COUNT 771 10x3/uL (130-400); RDW 16.9 % (11.5-14.5)
[2018-07-01 10:17] LABS: HEMATOCRIT 25.7 % (36.0-48.0); HEMOGLOBIN 8.2 g/dL (12-16); MCV 80.1 fL (80.0-100.0); RBC 3.21 10x6/uL (4.00-5.40)
[2018-07-01 10:45] LABS: ALBUMIN 2.3 g/dL (3.4-5.0); ALKALINE PHOSPHATASE 54 U/L (46-116); ALT (SGPT) 10 U/L (10-68); CALC OSMOLALITY 280 mosm/kg (275-300); CALCIUM 7.3 mg/dL (8.5-10.1); CARBON DIOXIDE 30.1 mmol/L (21.0-32.0); CHLORIDE - SERUM 107 mmol/L (98-107); CREATININE - SERUM 0.6 mg/dL (0.6-1.3); GLUCOSE 86 mg/dL (74-106); MAGNESIUM - SERUM 1.9 mg/dL (1.8-2.4); POTASSIUM - SERUM 3.3 mmol/L (3.5-5.1); PROTEIN - SERUM 4.9 g/dL (6.4-8.2); SODIUM 143 mmol/L (136-145); eGFR NON AFRICAN AMERICAN > 90 mL/min (90-120)
[2018-07-01 10:58] LABS: UREA NITROGEN 4 mg/dL (7-18)
[2018-07-01] MEDS ORDERED: PROTONIX40 MG PO (11:26)
[2018-07-02 03:45] VITALS: BP 129/69
[2018-07-02 05:48] LABS: HEMATOCRIT 32.9 % (36.0-48.0); HEMOGLOBIN 10.3 g/dL (12-16); MCH 25.8 pg (26.0-34.0); MCHC 31.3 g/dL (31.0-37.0); MCV 82.5 fL (80.0-100.0); MEAN PLATELET VOLUME 9.1 fL (7.4-10.4); PLATELET COUNT 722 10x3/uL (130-400); RBC 3.99 10x6/uL (4.00-5.40); RDW 17.2 % (11.5-14.5); WBC 28.3 10x3/uL (4.8-10.8)
[2018-07-02 06:01] LABS: ALBUMIN 2.2 g/dL (3.4-5.0); ANION GAP 9.8 mmol/L (8-16); BILIRUBIN - TOTAL 0.13 mg/dL (0.2-1.3); CALCIUM 7.3 mg/dL (8.5-10.1); CARBON DIOXIDE 28.5 mmol/L (21.0-32.0); POTASSIUM - SERUM 3.3 mmol/L (3.5-5.1); PROTEIN - SERUM 4.9 g/dL (6.4-8.2)
[2018-07-02 06:23] LABS: MONOCYTES 1 % (2-11); NEUTROPHILS 92 % (40-80); PLATELET ESTIMATE INCREASED; PLATELET MORPHOLOGY NORMAL PLT MORPH
[2018-07-02 08:46] VITALS: BP 137/75
== END 2018-07-02 18:10 | disposition home or self-care (01) ==
LOC: D.ER 22:50 → OBSVTIME 23:58 → D.EDHOLD 23:58 → D.M2 07-01 00:12 → D.ICU 07-01 01:17 → D.EDHOLD 07-01 02:22 → D.M2 07-01 10:50
PROVIDERS: Family Medicine
DX: D46.9 Myelodysplastic syndrome, unspecified (principal); E87.6 Hypokalemia; F41.9 Anxiety disorder, unspecified; Z87.891 Personal history of nicotine dependence; R51 Headache; K59.00 Constipation, unspecified; E86.0 Dehydration; E86.1 Hypovolemia; G89.29 Other chronic pain

== ENCOUNTER 2018-08-17 15:37 | Inpatient (IN) | payer MEDICARE ==
[~2018-08-17] VITALS: Ht 162.6 cm; Wt 59.1 kg
[~2018-08-17 15:37] MED LIST changes: +PROTONIX40 MG PO
--- NOTE | 2018-08-17 16:00 | NUR ---
PORT ACCESSED TO R CHEST, WITH BLOOD RETURN AND EASY FLUSH.
[2018-08-17 16:34] LABS: BASOPHILS 0 % (0-2); EOSINOPHILS 1.6 % (0-7); IMMATURE GRANULOCYTES 0.2 % (0-5); LYMPHOCYTES 7.3 % (15-50); MCH 21.8 pg (26.0-34.0); MCHC 28.1 g/dL (31.0-37.0); MCV 77.7 fL (80.0-100.0); MEAN PLATELET VOLUME 9.3 fL (7.4-10.4); MONOCYTES 12.4 % (2-11); NEUTROPHILS 78.5 % (40-80); RBC 2.38 10x6/uL (4.00-5.40); RDW 20.9 % (11.5-14.5); WBC 6.2 10x3/uL (4.8-10.8)
[2018-08-17 16:49] LABS: ALBUMIN 2.5 g/dL (3.4-5.0); ALKALINE PHOSPHATASE 74 U/L (46-116); ALT (SGPT) 13 U/L (10-68); CALC OSMOLALITY 276 mosm/kg (275-300); CALCIUM 7.8 mg/dL (8.5-10.1); CARBON DIOXIDE 26.5 mmol/L (21.0-32.0); CHLORIDE - SERUM 105 mmol/L (98-107); CREATININE - SERUM 0.6 mg/dL (0.6-1.3); GLUCOSE 104 mg/dL (74-106); POTASSIUM - SERUM 3.5 mmol/L (3.5-5.1); PROTEIN - SERUM 5.5 g/dL (6.4-8.2); SODIUM 139 mmol/L (136-145); UREA NITROGEN 11 mg/dL (7-18); eGFR NON AFRICAN AMERICAN > 90 mL/min (90-120)
[2018-08-17 16:51] LABS: BILIRUBIN - TOTAL 0.09 mg/dL (0.2-1.3)
[2018-08-17 17:03] LABS: HEMATOCRIT 18.5 % (36.0-48.0); HEMOGLOBIN 5.2 g/dL (12-16); PLATELET COUNT 352 10x3/uL (130-400)
[2018-08-17 17:09] LABS: APPEARANCE CLEAR (CLEAR); BILIRUBIN NEGATIVE (NEGATIVE); COLOR YELLOW (YELLOW); GLUCOSE NEGATIVE (NEGATIVE); KETONE NEGATIVE (NEGATIVE); NITRITE NEGATIVE (NEGATIVE); PROTEIN NEGATIVE (NEGATIVE); SPECIFIC GRAVITY 1.025 (1.005-1.020); UROBILINOGEN NORMAL (NORMAL)
[2018-08-17 17:11] LABS: BACTERIA FEW /hpf (NONE SEEN); EPITHELIAL CELLS 0-5 /hpf (0-5); MUCUS >1+ /lpf (NONE SEEN); RED CELLS - URINE OCC /hpf (0-5); WHITE CELLS - URINE OCC /hpf (0-5)
[2018-08-17 17:57] LABS: AMYLASE - SERUM 27 U/L (25-115); LIPASE 106 U/L (73-393)
[2018-08-17 18:51] VITALS: BP 114/62
[2018-08-17 21:44] VITALS: BP 128/72
[2018-08-17 21:46] VITALS: BP 128/72; Ht 162.6 cm; Wt 59.1 kg
[2018-08-18 01:37] VITALS: BP 114/58
[2018-08-18 04:48] VITALS: BP 120/69
[2018-08-18] MEDS ORDERED: KENALOG 0.1 % O15 GM TOPICAL (05:40)
--- NOTE | 2018-08-18 08:02 | NUR ---
PT RESTING IN BED. REQUESTING BISCUITS AND SAUSAGE GRAVT FOR BREAKFAST. PUT IN DIET MESSAGE. NO S/S OF ACUTE DISTRESS. CL IN PLACE.
[2018-08-18 08:30] VITALS: BP 112/58; BP 160/80
[2018-08-18 09:19] LABS: BASOPHILS 0.2 % (0-2); EOSINOPHILS 5.3 % (0-7); IMMATURE GRANULOCYTES 0.2 % (0-5); LYMPHOCYTES 8.7 % (15-50); MCH 24.8 pg (26.0-34.0); MCHC 31.2 g/dL (31.0-37.0); MCV 79.6 fL (80.0-100.0); MONOCYTES 15.9 % (2-11); NEUTROPHILS 69.7 % (40-80); RDW 18.3 % (11.5-14.5); WBC 5.6 10x3/uL (4.8-10.8)
[2018-08-18 09:26] LABS: HEMOGLOBIN 7.8 g/dL (12-16); PLATELET COUNT 667 10x3/uL (130-400); RBC 3.14 10x6/uL (4.00-5.40)
[2018-08-18 09:34] LABS: CALC OSMOLALITY 280 mosm/kg (275-300); CALCIUM 7.5 mg/dL (8.5-10.1); CARBON DIOXIDE 27.5 mmol/L (21.0-32.0); CHLORIDE - SERUM 108 mmol/L (98-107); CREATININE - SERUM 0.6 mg/dL (0.6-1.3); GLUCOSE 90 mg/dL (74-106); POTASSIUM - SERUM 3.2 mmol/L (3.5-5.1); SODIUM 141 mmol/L (136-145); UREA NITROGEN 12 mg/dL (7-18); eGFR NON AFRICAN AMERICAN > 90 mL/min (90-120)
[2018-08-18 12:30] VITALS: BP 122/63
[2018-08-18 16:30] VITALS: BP 120/80
[2018-08-18 18:52] LABS: HEMATOCRIT 29.6 % (36.0-48.0); HEMOGLOBIN 9.2 g/dL (12-16)
--- NOTE | 2018-08-18 18:56 | NUR ---
LATE ENTRY 08/18/18 1500. RETIMED PROTONIX. PT RECIEVEING BLOOD.
--- NOTE | 2018-08-18 19:41 | NUR ---
PT IN BED TALKING TO FRIEND, ALIA. PT UPSET ABOUT THE DYNAMICS OF " HER AND HER MOTHER'S RELATIONSHIP". NO S/S OF ACUTE DISTRESS. CL IN PLACE.
[2018-08-18 21:48] VITALS: BP 123/78
[2018-08-19 00:55] VITALS: BP 122/60
[2018-08-19 05:35] VITALS: BP 101/63
--- NOTE | 2018-08-19 06:34 | NUR ---
PT IN BED RESTING QUIETLY WITH EYES CLOSED. NO VISUAL CUES OF DISTRESS NOTED. VITAL SIGNS STABLE AND AFEBRILE. DENIES ANY OTHER NEEDS AT THIS TIME. BED LOW, SIDE RAILS UP X2. CALL LIGHT IN REACH. WILL CONTINUE TO MONITOR.
[2018-08-19 06:42] LABS: CALC OSMOLALITY 283 mosm/kg (275-300); CALCIUM 7.6 mg/dL (8.5-10.1); CARBON DIOXIDE 24.7 mmol/L (21.0-32.0); CHLORIDE - SERUM 110 mmol/L (98-107); CREATININE - SERUM 0.7 mg/dL (0.6-1.3); GLUCOSE 96 mg/dL (74-106); POTASSIUM - SERUM 3.6 mmol/L (3.5-5.1); SODIUM 143 mmol/L (136-145); UREA NITROGEN 10 mg/dL (7-18); eGFR NON AFRICAN AMERICAN > 90 mL/min (90-120)
[2018-08-19 06:48] LABS: BASOPHILS 0.2 % (0-2); EOSINOPHILS 9.6 % (0-7); HEMATOCRIT 29.6 % (36.0-48.0); HEMOGLOBIN 9.1 g/dL (12-16); IMMATURE GRANULOCYTES 0.2 % (0-5); MCH 24.7 pg (26.0-34.0); MCHC 30.7 g/dL (31.0-37.0); MCV 80.4 fL (80.0-100.0); MEAN PLATELET VOLUME 9.6 fL (7.4-10.4); MONOCYTES 13.9 % (2-11); NEUTROPHILS 63.1 % (40-80); PLATELET COUNT 747 10x3/uL (130-400); RBC 3.68 10x6/uL (4.00-5.40); RDW 18.5 % (11.5-14.5); WBC 5.5 10x3/uL (4.8-10.8)
--- NOTE | 2018-08-19 07:45 | NUR ---
AWAKE AND ALERT, ORIENTED X4, PORT ACCESS TO RIGHT CHEST, EVEN UNLABORED BREATHING, DENIES ANY CURRENT NEEDS, BED LOWERED AND LOCKED, CALL LIGHT WITHIN REACH.
[2018-08-19 09:04] VITALS: BP 116/74
--- NOTE | 2018-08-19 11:08 | NUR ---
DISCHARGE INSTRUCTION GIVEN, VERBAL WITH HANDOUTS, VERBALIZES UNDERSTANDING. DENIES ANY CURRENT NEEDS OR CONCERNS. WAITING ON RIDE TO HER HOME,
--- NOTE | 2018-08-19 11:23 | MORECARE ---
CASE MANAGEMENT DISCHARGE SUMMARY PATIENT: IVKAS ESCOBEDO UNIT: [id number] ADM DATE: 08/18/18 AGE: 53 : 63 SEX: F ROOM/BED: D.2208 AUTHOR: TORREY MCKEON PHYSICIAN: REFERRING PHYSICIAN: FABY RAMOS MD DATE OF SERVICE: 08/19/18 Discharge Plan Patient Name: VIKAS ESCOBEDO Facility: [facility]:[place] : 1965 Planned Disposition: Anticipated Discharge Date: Discharge Date: Expected LOS: Initial Reviewer: [email or web address] Initial Review Date: 08/17/2018 Generated: 08/19/18 12:23 pm Comments DCP- Discharge Planning Updated by [email or web address]: Karin Dyson on 08/19/18 10:[address] patient discharging home today, she will go by taxi and set it up on her own. she denies any needs at this time Patient Name: VIKAS ESCOBEDO Page 47166 at 1123 All edits/amendments must be made on the electronic document DICTATION DATE: 08/19/181122 EVAPORATOR SUPERVISOR: RAFA 08/19/181122 RPT#: [id number] DC DATE: STATUS: ADM IN [facility] [address] [place] [address] END OF REPORT
--- NOTE | 2018-08-22 10:01 | MORECARE ---
CASE MANAGEMENT DISCHARGE SUMMARY PATIENT: VIKAS ESCOBEDO UNIT: [id number] ADM DATE: 08/18/18 AGE: 53 : 63 SEX: F ROOM/BED: D.2208 AUTHOR: TORREY MCKEON PHYSICIAN: REFERRING PHYSICIAN: FABY RAMOS MD DATE OF SERVICE: 08/22/18 Discharge Plan Patient Name: VIKAS ESCOBEDO Facility: [facility]:[place] : 1965 Planned Disposition: Anticipated Discharge Date: Discharge Date: 08/19/2018 Expected LOS: Initial Reviewer: [email or web address] Initial Review Date: 08/17/2018 Generated: 08/22/18 11:01 am Comments DCP- Discharge Planning Updated by [email or web address]: Karin Kiel on 08/19/18 10:[address] patient discharging home today, she will go by taxi and set it up on her own. she denies any needs at this time Last DP export: 08/19/18 10:23 am Patient Name: VIKAS ESCOBEDO Page 18912 at 1001 All edits/amendments must be made on the electronic document DICTATION DATE: 08/22/18 1000 PRIMER PRESS OPERATOR: RAFA 08/22/18 1000 RPT#: [id number] DC DATE:08/19/18 STATUS: DIS IN [place] [id number] [place] [address] END OF REPORT
== END 2018-08-19 11:30 | disposition home or self-care (01) | DRG 812 ==
LOC: D.ER 15:37 → OBSVTIME 18:57 → D.EDHOLD 18:57 → D.MS 21:01
PROVIDERS: Family Medicine; ADMIT Internal Medicine Nephrology
DX: D46.4 Refractory anemia, unspecified (principal); F41.9 Anxiety disorder, unspecified; E83.42 Hypomagnesemia

== ENCOUNTER 2018-09-06 15:06 | Inpatient (IN) | payer MEDICARE ==
[~2018-09-06] VITALS: Ht 162.6 cm; Wt 59.1 kg
[2018-09-06 15:57] LABS: BASOPHILS 0.3 % (0-2); EOSINOPHILS 3.1 % (0-7); IMMATURE GRANULOCYTES 0.3 % (0-5); LYMPHOCYTES 9.7 % (15-50); MCH 20.4 pg (26.0-34.0); MCHC 27.1 g/dL (31.0-37.0); MCV 75.2 fL (80.0-100.0); MEAN PLATELET VOLUME 9.7 fL (7.4-10.4); MONOCYTES 12.5 % (2-11); NEUTROPHILS 74.1 % (40-80); RDW 19.3 % (11.5-14.5); WBC 3.9 10x3/uL (4.8-10.8)
[2018-09-06 16:09] LABS: HEMATOCRIT 18.8 % (36.0-48.0); HEMOGLOBIN 5.1 g/dL (12-16); PLATELET COUNT 371 10x3/uL (130-400)
[2018-09-06 16:20] LABS: ALKALINE PHOSPHATASE 94 U/L (46-116); ALT (SGPT) 15 U/L (10-68); CALC OSMOLALITY 279 mosm/kg (275-300); CALCIUM 7.8 mg/dL (8.5-10.1); CARBON DIOXIDE 27.2 mmol/L (21.0-32.0); CHLORIDE - SERUM 107 mmol/L (98-107); CREATININE - SERUM 0.6 mg/dL (0.6-1.3); GLUCOSE 102 mg/dL (74-106); POTASSIUM - SERUM 3.6 mmol/L (3.5-5.1); PROTEIN - SERUM 6.4 g/dL (6.4-8.2); SODIUM 141 mmol/L (136-145); UREA NITROGEN 10 mg/dL (7-18); eGFR NON AFRICAN AMERICAN > 90 mL/min (90-120)
--- NOTE | 2018-09-06 17:36 | NUR ---
PORT ACCESS WITH BLOOD DRAW, STERILE FIELD MAINTAINED. PT TOLERATED WELL 20 GA 0.75 INCH NEEDLE.
--- NOTE | 2018-09-06 17:37 | NUR ---
ILIA IN LAB CONTACTED FOR BLOOD TRANSFUSION.
--- NOTE | 2018-09-06 18:12 | NUR ---
BLOOD BANK CONTACTED TO INFORM BLOOD IS READY IN LAB.
--- NOTE | 2018-09-06 18:53 | NUR ---
ASSUMED CARE OF PATIENT, PRBC INITIATED, ROOM ON FLOOR READY, WILL ATTEMPT TO CALL REPORT, PT STABLE FRIEND AT BEDSIDE.
[2018-09-06 18:54] VITALS: BP 111/58
--- NOTE | 2018-09-06 18:57 | NUR ---
ATTEMPTED TO CALL REPORT, ASKED FOR ME TO CALL BACK IN TEN MINUTES. REPORT GIVEN TO MATY MICHAEL.
[2018-09-06 20:00] VITALS: BP 130/82
--- NOTE | 2018-09-06 20:00 | NUR ---
ADMITED FROM ER PT WITH PACKED RED BLOOD CELLS INFUSING TO GRAVITY...BLOOD PUT TO PUMP. LCTA RESP EVEN AND UNLABORED SKIN WARM AND DRY WITH NO RASH NOTED PT DENIES SOB. BED LOW AND SRX2 AND CALL LIGHT IS IN REACH. PULSES INTACT AND BOWEL SOUNDS X4
--- NOTE | 2018-09-06 21:36 | NUR ---
BEGAN TRANSFUSING SECOND UNIT PRBC'S
[2018-09-07] VITALS: BP 126/74
[2018-09-07 01:45] VITALS: BP 113/57; BMI 22.3
[2018-09-07 04:00] VITALS: BP 139/77
--- NOTE | 2018-09-07 04:07 | NUR ---
3 UNITS OF PACKED RED BLOOD CELLS COMPLETE RESP WNL NO RASH NO FEVER LCTA
--- NOTE | 2018-09-07 07:10 | NUR ---
INITIAL ROUNDING ON PATIENT, CAREGIVER INTRODUCED, CARE PLAN DISCUSSED. PT AWAKE AND ALERT, DENIES PAIN. NO S/S OF SOB NOTED.
[2018-09-07 07:33] VITALS: BP 147/91
--- NOTE | 2018-09-07 09:10 | NUR ---
PATIENT INSTRUCTED ON THE USE OF SCD'S. APPLIED TO BILATERAL LOWER LEGS AT THIS TIME
--- NOTE | 2018-09-07 09:23 | NUR ---
CALLED DR MATAMOROS OFFICE, ASKED HE BE PAGED, SPOKE TO EDGARDO AT [phone] TO INQUIRE ABOUT LABS, NEED TO ORDER?
--- NOTE | 2018-09-07 09:39 | NUR ---
DR MATAMOROS RETURNED THE PAGE, NEW ORDERS FOR LABS
[2018-09-07 11:21] VITALS: BP 159/99
[2018-09-07 11:29] LABS: BASOPHILS 0.2 % (0-2); EOSINOPHILS 7.6 % (0-7); IMMATURE GRANULOCYTES 0.2 % (0-5); LYMPHOCYTES 14.6 % (15-50); MCH 24.7 pg (26.0-34.0); MCHC 31.7 g/dL (31.0-37.0); MEAN PLATELET VOLUME 9.6 fL (7.4-10.4); MONOCYTES 8.5 % (2-11); NEUTROPHILS 68.9 % (40-80); PLATELET COUNT 325 10x3/uL (130-400); RDW 17.8 % (11.5-14.5)
[2018-09-07 11:40] LABS: INR 0.97 (0.85-1.17); PROTIME 12.4 SECONDS (11.6-15.0)
[2018-09-07 11:42] LABS: HEMATOCRIT 27.1 % (36.0-48.0); HEMOGLOBIN 8.6 g/dL (12-16); MCV 77.9 fL (80.0-100.0); RBC 3.48 10x6/uL (4.00-5.40); WBC 5.3 10x3/uL (4.8-10.8)
[2018-09-07 11:56] LABS: % SATURATION 4 % (15-55); IRON 18 ug/dl (35-150); TOTAL IRON BIND CAPACITY 407 ug/dl (260-445); UNSAT IRON BIND CAPACITY 389 ug/dl (150-375)
[2018-09-07 12:07] LABS: ALBUMIN 2.9 g/dL (3.4-5.0); ALKALINE PHOSPHATASE 97 U/L (46-116); ALT (SGPT) 13 U/L (10-68); BILIRUBIN - TOTAL 0.29 mg/dL (0.2-1.3); CALCIUM 7.7 mg/dL (8.5-10.1); CARBON DIOXIDE 28.3 mmol/L (21.0-32.0); CHLORIDE - SERUM 106 mmol/L (98-107); FERRITIN 2 ng/mL (3-244); GLUCOSE 106 mg/dL (74-106); POTASSIUM - SERUM 3.1 mmol/L (3.5-5.1); PROTEIN - SERUM 6.2 g/dL (6.4-8.2); SODIUM 144 mmol/L (136-145); eGFR NON AFRICAN AMERICAN 79 mL/min (90-120)
[2018-09-07 12:09] LABS: CALC OSMOLALITY 287 mosm/kg (275-300); CREATININE - SERUM 0.8 mg/dL (0.6-1.3); UREA NITROGEN 14 mg/dL (7-18)
[2018-09-07 14:32] LABS: PLATELET ESTIMATE NORMAL
[2018-09-07 14:33] LABS: ANISOCYTOSIS OCC; HYPOCHROMASIA 1+
[2018-09-07 15:32] VITALS: Ht 162.6 cm; Wt 59.1 kg
--- NOTE | 2018-09-07 17:35 | NUR ---
THE PATIENT SIGNED THE AMA PAPER AFTER SPEAKING TO THE CHARGE NURSE AND MYSELF AT LENGTH ABOUT THE POSSIBLE OUTCOME OF LEAVING AGAINST MEDICAL ADVICE. THE RIGHT CHEST PORT WAS DEACCESSED, PATIENT STATES SHE IS HEADED TO [facility] FOR TREATMENT. WHEN REASSESSING THE PAIN LEVEL POST DILAUDID ADMINISTRATION, SHE STATED "THAT LITTLE BIT DID NOTHING, THE 10 MG VALIUM I TOOK IS WHAT HELPED" WHEN ASKED WHO GAVE IT TO HER SHE REPLIED, "I DID, ITS MINE". SHE WAS THEN INSTRUCTED ON THE POLICY AND DANGERS OF TAKING HOME MEDICATIONS ON TOP OF HOSPITAL MEDICATION. SHE WAS VERY ARGUMENTATIVE. THE PATIENT STATES SHE IS UPSET DUE TO NOT GETTING A TECHNICIAN BIOLOGICAL HEALTH PUMP "LIKE THE DOCTOR JUST TOLD ME I WAS" AND THE FACT THAT IT IS POLICY TO LOCK ALL HOME MEDICATONS UP IN THE PHARMACY. INSTRUCTED HER ON THE DANGERS OF TAKING HOME NARCOTICS ON TOP OF THE PRESCRIBED MEDICATIONS HERE. SHE CONTINUED TO ARGUE, STATING "JUST GET THE PAPER, I AM GOING TO DR TORRES" THAT "THEY WERE PRESCRIBED AND SHE WAS NOT GIVING THEM UP, BECAUSE SHE NEVER GETS THEM BACK". CHARGE NURSE ALSO TRIED TO EXPLAIN TO HER THAT SHE WOULD GET THEM BACK, AND IT WAS UNSAFE TO HAVE THEM IN HER ROOM TO NO AVAIL. CHARGE NURSE NOTIFIED THE PANTS PRESSER.
== END 2018-09-07 17:53 | disposition left against medical advice (07) | DRG 812 ==
LOC: D.ER 15:06 → D.M3 17:53 → OBSVTIME 17:53 → D.EDHOLD 17:53 → D.M3 18:38
PROVIDERS: Emergency Medicine; ADMIT Family Medicine Adult Medicine
DX: D46.9 Myelodysplastic syndrome, unspecified (principal); G89.29 Other chronic pain; F41.9 Anxiety disorder, unspecified; E87.6 Hypokalemia

== ENCOUNTER 2018-10-14 21:57 | Emergency (ER) | payer MEDICARE ==
[~2018-10-14] VITALS: Ht 162.6 cm; Wt 60.9 kg
[2018-10-14 22:00] VITALS: Ht 162.6 cm; Wt 60.9 kg
[2018-10-14 22:43] LABS: BASOPHILS 0.2 % (0-2); EOSINOPHILS 7.2 % (0-7); HEMATOCRIT 20.3 % (36.0-48.0); LYMPHOCYTES 15.9 % (15-50); MCH 21.5 pg (26.0-34.0); MCHC 28.1 g/dL (31.0-37.0); MCV 76.6 fL (80.0-100.0); MEAN PLATELET VOLUME 9.2 fL (7.4-10.4); MONOCYTES 13.2 % (2-11); NEUTROPHILS 63.5 % (40-80); RBC 2.65 10x6/uL (4.00-5.40); RDW 19.2 % (11.5-14.5); WBC 4.9 10x3/uL (4.8-10.8)
[2018-10-14 22:45] LABS: HEMOGLOBIN 5.7 g/dL (12-16); PLATELET COUNT 614 10x3/uL (130-400)
[2018-10-14 22:57] LABS: ALBUMIN 2.9 g/dL (3.4-5.0); ALKALINE PHOSPHATASE 82 U/L (46-116); ALT (SGPT) 14 U/L (10-68); BILIRUBIN - TOTAL 0.07 mg/dL (0.2-1.3); CALC OSMOLALITY 280 mosm/kg (275-300); CALCIUM 7.5 mg/dL (8.5-10.1); CARBON DIOXIDE 27.8 mmol/L (21.0-32.0); CHLORIDE - SERUM 107 mmol/L (98-107); CREATININE - SERUM 0.6 mg/dL (0.6-1.3); GLUCOSE 89 mg/dL (74-106); POTASSIUM - SERUM 3.2 mmol/L (3.5-5.1); SODIUM 142 mmol/L (136-145); UREA NITROGEN 11 mg/dL (7-18); eGFR NON AFRICAN AMERICAN > 90 mL/min (90-120)
[2018-10-14 23:03] LABS: TROPONIN-I < 0.017 ng/mL (0.000-0.060)
[2018-10-14 23:56] VITALS: BP 110/71
== END 2018-10-15 02:44 | disposition home or self-care (01) ==
LOC: D.ER 21:57
PROVIDERS: Emergency Medicine
DX: C92.00 Acute myeloblastic leukemia, not having achieved remission (principal)

== ENCOUNTER 2019-01-28 23:54 | Inpatient (IN) | payer MEDICARE ==
[~2019-01-28] VITALS: Ht 162.6 cm; Wt 60.0 kg
[2019-01-29] VITALS (8 sets, daily range): BP systolic 104–147; BP diastolic 58–76; Ht 162.6 cm; Wt 60.0 kg
[2019-01-29 00:34] LABS: BASOPHILS 0.3 % (0-2); EOSINOPHILS 1.5 % (0-7); LYMPHOCYTES 17.1 % (15-50); MCHC 26.4 g/dL (31.0-37.0); MCV 67.2 fL (80.0-100.0); MEAN PLATELET VOLUME 8.8 fL (7.4-10.4); MONOCYTES 17.4 % (2-11); NEUTROPHILS 63.7 % (40-80); RDW 20.1 % (11.5-14.5); WBC 3.3 10x3/uL (4.8-10.8)
[2019-01-29 00:38] LABS: HEMOGLOBIN 3.2 g/dL (12-16)
[2019-01-29 00:39] LABS: HEMATOCRIT 12.1 % (36.0-48.0); MCH 17.8 pg (26.0-34.0); PLATELET COUNT 335 10x3/uL (130-400)
--- NOTE | 2019-01-29 00:44 | NUR ---
PT GIVE ICE CHIPS. PT SITTING IN BED ON PHONE.
[2019-01-29 00:59] LABS: ALBUMIN 3.1 g/dL (3.4-5.0); ALKALINE PHOSPHATASE 67 U/L (46-116); ALT (SGPT) 15 U/L (10-68); BILIRUBIN - TOTAL 0.21 mg/dL (0.2-1.3); CALC OSMOLALITY 281 mosm/kg (275-300); CALCIUM 7.6 mg/dL (8.5-10.1); CARBON DIOXIDE 26.3 mmol/L (21.0-32.0); CHLORIDE - SERUM 106 mmol/L (98-107); CREATININE - SERUM 0.8 mg/dL (0.6-1.3); GLUCOSE 101 mg/dL (74-106); POTASSIUM - SERUM 3.3 mmol/L (3.5-5.1); PROTEIN - SERUM 5.9 g/dL (6.4-8.2); SODIUM 140 mmol/L (136-145); UREA NITROGEN 20 mg/dL (7-18); eGFR NON AFRICAN AMERICAN 79 mL/min (90-120)
--- NOTE | 2019-01-29 01:40 | NUR ---
CONSENT SIGNED FOR BLOOD TRANSFUSION. PT OK WITH POC.
--- NOTE | 2019-01-29 02:15 | NUR ---
PT ARRIVED ON UNIT VIA WHEELCHAIR ESCORTED BY ER NURSE. AMBULATED TO BED AND POSITIONED SELF. 1ST UNITS OF PRBC'S INFUSING ON TRANSFER. VITALS STABLE AND PT IS AFEBRILE. TELEMETRY PLACED PER ORDER. GAVE SANDWICH TRAY AND SODA PER REQUEST. WILL MONITOR FOR NEEDS.
--- NOTE | 2019-01-29 03:45 | NUR ---
1ST UNIT OF PRBC'S COMPLETE. VITALS STABLE AND PT REMAINS AFEBRILE.
--- NOTE | 2019-01-29 04:38 | NUR ---
PT C/O SEVERE PAIN AND NAUSEA...MOANING AND UNABLE TO LAY STILL. GAVE MORPHINE 2 MG IVP AND ZOFRAN 4 MG IVP PER PRN ORDERS. WILL MONITOR FOR EFFECTIVENESS.
--- NOTE | 2019-01-29 05:00 | NUR ---
2ND UNIT OF PRBC'S STARTED. VITALS STABLE AND PT IS AFEBRILE.
--- NOTE | 2019-01-29 09:37 | NUR ---
BEGIN 3RD UNIT OF PRBC PER ORDER. VITALS STABLE. INFUSING AT 125ML/HR. TO LEFT CHEST INFUSAPORT, SITE IS CLEAN, NO SWELLING OR REDNESS, NEW TUBING AND HUB REPLACED. DENIES ANY NEEDS OR DISCOMFORTS, BED LOWERED AND LOCKED, CALL LIGHT WITHIN REACH.CPOC
[2019-01-29 13:08] LABS: BASOPHILS 0 % (0-2); EOSINOPHILS 5.5 % (0-7); IMMATURE GRANULOCYTES 0.3 % (0-5); LYMPHOCYTES 16.3 % (15-50); MCH 23.1 pg (26.0-34.0); MCHC 30.6 g/dL (31.0-37.0); MEAN PLATELET VOLUME 8.9 fL (7.4-10.4); MONOCYTES 18.4 % (2-11); NEUTROPHILS 59.5 % (40-80); WBC 3.3 10x3/uL (4.8-10.8)
[2019-01-29 13:10] LABS: HEMATOCRIT 21.9 % (36.0-48.0); HEMOGLOBIN 6.7 g/dL (12-16); MCV 75.5 fL (80.0-100.0); PLATELET COUNT 266 10x3/uL (130-400)
--- NOTE | 2019-01-29 19:00 | NUR ---
REPORT RECEIVED AND CARE OF PT ASSUMED. PT LYING IN SUPINE POSITION WITH EYES CLOSED. 4TH UNIT OF PRBC'S INFUSING AT THIS TIME. VITALS STABLE AND PT IS AFEBRILE. TELEMETRY IN PLACE AND READING SR AT THIS TIME. WILL MONITOR FOR NEEDS.
--- NOTE | 2019-01-29 19:45 | NUR ---
4TH UNIT OF PRBC'S COMPLETE AND LINES FLUSHING.
--- NOTE | 2019-01-29 21:30 | NUR ---
STARTED 5TH UNIT OF PRBC'S. VITALS STABLE AND PT IS AFEBRILE. DISCUSSED LASIX WITH PT AND SHE STATES SHE DOES FEEL "TIGHTER" IN HER HANDS AND ARMS, BUT DOES NOT WANT LASIX AT THIS TIME. LUNGS CLEAR AND OBJECTIVELY HANDS / ARMS DO NOT LOOK SWOLLEN.
--- NOTE | 2019-01-29 22:10 | NUR ---
GAVE DILAUDID AND ZOFRAN IVP PER PT REQUEST, PER PRN ORDER, FOR PAIN AND NAUSEA. WILL CONTINUE TO MONITOR FOR NEEDS.
--- NOTE | 2019-01-30 01:16 | NUR ---
PT SITTING UP IN BED TAKING OFF TELEMETRY AND CRYING THAT SHE NEEDS PAIN MED NOW....WANTS CALLED. GAVE PRN DILAUDID A LITTLE EARLY. PT IMMEDIATELY WENT TO SLEEP...RESTING QUIETLY AT THIS TIME.
[2019-01-30 01:27] VITALS: BP 134/79
[2019-01-30 05:17] LABS: ALKALINE PHOSPHATASE 73 U/L (46-116); BILIRUBIN - TOTAL 0.42 mg/dL (0.2-1.3); CALCIUM 7.7 mg/dL (8.5-10.1); CARBON DIOXIDE 26.6 mmol/L (21.0-32.0); CHLORIDE - SERUM 109 mmol/L (98-107); GLUCOSE 91 mg/dL (74-106); PROTEIN - SERUM 5.7 g/dL (6.4-8.2); SODIUM 142 mmol/L (136-145)
[2019-01-30 05:18] LABS: ALT (SGPT) 20 U/L (10-68); CALC OSMOLALITY 281 mosm/kg (275-300); CREATININE - SERUM 0.5 mg/dL (0.6-1.3); POTASSIUM - SERUM 3.9 mmol/L (3.5-5.1); UREA NITROGEN 9 mg/dL (7-18); eGFR NON AFRICAN AMERICAN > 90 mL/min (90-120)
[2019-01-30 05:21] LABS: BASOPHILS 0.2 % (0-2); EOSINOPHILS 4.9 % (0-7); IMMATURE GRANULOCYTES 0.2 % (0-5); LYMPHOCYTES 7.2 % (15-50); MCH 23.7 pg (26.0-34.0); MCHC 30.9 g/dL (31.0-37.0); MCV 76.8 fL (80.0-100.0); MEAN PLATELET VOLUME 9.1 fL (7.4-10.4); MONOCYTES 11.5 % (2-11); PLATELET COUNT 260 10x3/uL (130-400); RDW 19.8 % (11.5-14.5)
[2019-01-30 05:23] LABS: HEMATOCRIT 29.1 % (36.0-48.0); RBC 3.79 10x6/uL (4.00-5.40); WBC 4.9 10x3/uL (4.8-10.8)
[2019-01-30 05:42] VITALS: BP 124/74
[2019-01-30 08:43] VITALS: BP 132/78
--- NOTE | 2019-01-30 11:15 | MORECARE ---
CASE MANAGEMENT DISCHARGE SUMMARY PATIENT: VIKAS ESCOBEDO UNIT: [id number] ADM DATE: 01/29/19 AGE: 53 : 63 SEX: F ROOM/BED: D.2204 AUTHOR: TORREY MCKEON PHYSICIAN: REFERRING PHYSICIAN: MONICA BOWERS MD DATE OF SERVICE: 01/30/19 Discharge Plan Patient Name: VIKAS ESCOBEDO Facility: [facility]:[place] : 1965 Planned Disposition: Home or Self Care Anticipated Discharge Date: Discharge Date: Expected LOS: Initial Reviewer: [email or web address] Initial Review Date: 01/29/2019 Generated: 01/30/19 12:15 pm DCPIA - Discharge Planning Initial Assessment Updated by [email or web address]: Karin Dyson on 01/30/19 11:14 am * Is the patient Alert and Oriented? Yes * PCP Tammy FORDE * Pharmacy [facility] * Preadmission Environment Home with Family * ADLs Independent * Equipment None * List name and contact numbers for known caregivers / representatives who currently or will assist patient after discharge: Joleen [phone] * Verbal permission to speak to the caregivers and representatives has been obtained from the patient. N/A * Community resources currently utilized None * Additional services required to return to the preadmission environment? No * Can the patient safely return to the preadmission environment? Yes * Has this patient been hospitalized within the prior 30 days at any hospital? No Patient Name: VIKAS ESCOBEDO Page 09799 at 1115 All edits/amendments must be made on the electronic document DICTATION DATE: 01/30/19 1115 FLUID DYNAMICIST: RAFA 01/30/19 1115 RPT#: [id number] DC DATE: STATUS: ADM IN [facility] [address] [place] [address] END OF REPORT
--- NOTE | 2019-01-30 11:25 | MORECARE ---
CASE MANAGEMENT DISCHARGE SUMMARY PATIENT: VIKAS ESCOBEDO UNIT: [id number] ADM DATE: 01/29/19 AGE: 53 : 63 SEX: F ROOM/BED: D.2204 AUTHOR: TORREY MCKEON PHYSICIAN: REFERRING PHYSICIAN: MONICA BOWERS MD DATE OF SERVICE: 01/30/19 Discharge Plan Patient Name: VIKAS ESCOBEDO Facility: [facility]:[place] : 1965 Planned Disposition: Home or Self Care Anticipated Discharge Date: Discharge Date: Expected LOS: Initial Reviewer: [email or web address] Initial Review Date: 01/29/2019 Generated: 01/30/19 12:24 pm DCP- Discharge Planning Updated by [email or web address]: Karin Dyson on 01/30/19 10:[address] Patient Name: VIKAS ESCOBEDO Admission Status: ER Accout number: [id number] Admission Date: 01-29-2019 : 1965 Admission Diagnosis: Attending: MONICA BOWERS Current LOS: 1 Anticipated DC Date: Planned Disposition: Home or Self Care Primary Insurance: MEDICARE A & B Discharge Planning Comments: CM met with patient to complete initial dc planning assessment. CM educated patient on the CM role and verbal consent given by patient to complete assessment. Patient lives at home with her mother where she is independent with her care. At discharge patient plans to return home and feels this is a safe discharge. Her mother will be her home delivery driver home at DC. CM discussed availability of home health, rehab services, and medical equipment. Patient denied known discharge needs at this time. CM will continue to follow and will assist as needed with dc plans/needs. Group Cio: Karin Dyson DCPIA - Discharge Planning Initial Assessment Updated by [email or web address]: Karin Dyson on 01/30/19 11:14 am * Is the patient Alert and Oriented? Yes * PCP Tammy FORDE * Pharmacy [facility] * Preadmission Environment Home with Family * ADLs Independent * Equipment None * List name and contact numbers for known caregivers / representatives who currently or will assist patient after discharge: Joleen [phone] * Verbal permission to speak to the caregivers and representatives has been obtained from the patient. N/A * Community resources currently utilized None * Additional services required to return to the preadmission environment? No * Can the patient safely return to the preadmission environment? Yes * Has this patient been hospitalized within the prior 30 days at any hospital? No Last DP export: 01/30/19 10:15 a Patient Name: VIKAS ESCOBEDO Page 98536 at 1125 All edits/amendments must be made on the electronic document DICTATION DATE: 01/30/191123 MILK DELIVERY DRIVER: RAFA 01/30/191123 RPT#: [id number] DC DATE: STATUS: ADM IN [facility] [address] [place] [address] END OF REPORT
--- NOTE | 2019-01-30 12:05 | NUR ---
IV PORT THERAPY DC'ED FROM LEFT CHEST PORT. DISCHARGE INSTRUCTIONS GIVEN. PATIENT VERBALIZED UNDERSTANDING. WILL NOTIFY US WHEN READY TO LEAVE.
--- NOTE | 2019-01-31 12:32 | MORECARE ---
CASE MANAGEMENT DISCHARGE SUMMARY PATIENT: VIKAS ESCOBEDO UNIT: [id number] ADM DATE: 01/29/19 AGE: 53 : 63 SEX: F ROOM/BED: D.2204 AUTHOR: TORREY MCKEON PHYSICIAN: REFERRING PHYSICIAN: MONICA BOWERS MD DATE OF SERVICE: 01/31/19 Discharge Plan Patient Name: VIKAS ESCOBEDO Facility: [facility]:[place] : 1965 Planned Disposition: Home or Self Care Anticipated Discharge Date: Discharge Date: 01/30/2019 Expected LOS: 0 Initial Reviewer: [email or web address] Initial Review Date: 01/29/2019 Generated: 01/31/19 1:32 pm DCP- Discharge Planning Updated by [email or web address]: Karin Dyson on 01/30/19 10:[address] Patient Name: VIKAS ESCOBEDO Admission Status: ER Accout number: [id number] Admission Date: 01-29-2019 : 1965 Admission Diagnosis: Attending: MONICA BOWERS Current LOS: 1 Anticipated DC Date: Planned Disposition: Home or Self Care Primary Insurance: MEDICARE A & B Discharge Planning Comments: CM met with patient to complete initial dc planning assessment. CM educated patient on the CM role and verbal consent given by patient to complete assessment. Patient lives at home with her mother where she is independent with her care. At discharge patient plans to return home and feels this is a safe discharge. Her mother will be her distribution driver home at DC. CM discussed availability of home health, rehab services, and medical equipment. Patient denied known discharge needs at this time. CM will continue to follow and will assist as needed with dc plans/needs. Representative Phlebotomy Services: Karin Dyson DCPIA - Discharge Planning Initial Assessment Updated by [email or web address]: Karin Dyson on 01/30/19 11:14 am * Is the patient Alert and Oriented? Yes * PCP Tammy FORDE * Pharmacy [facility] * Preadmission Environment Home with Family * ADLs Independent * Equipment None * List name and contact numbers for known caregivers / representatives who currently or will assist patient after discharge: Joleen [phone] * Verbal permission to speak to the caregivers and representatives has been obtained from the patient. N/A * Community resources currently utilized None * Additional services required to return to the preadmission environment? No * Can the patient safely return to the preadmission environment? Yes * Has this patient been hospitalized within the prior 30 days at any hospital? No Last DP export: 01/30/19 10:25 a Patient Name: VIKAS ESCOBEDO Page 72885 at 1232 All edits/amendments must be made on the electronic document DICTATION DATE: 01/31/19 1231 POWER REACTOR OPERATOR: RAFA 01/31/19 1231 RPT#: [id number] DC DATE:01/30/19 STATUS: DIS IN [facility] [address] [place] [address] END OF REPORT
== END 2019-01-30 13:38 | disposition home or self-care (01) | DRG 812 ==
LOC: D.ER 23:54 → D.MS 01-29 00:55
PROVIDERS: Family Medicine; Internal Medicine Nephrology; ADMIT Family Medicine; ATTEND Family Medicine
DX: D46.9 Myelodysplastic syndrome, unspecified (principal); C92.00 Acute myeloblastic leukemia, not having achieved remission; E86.1 Hypovolemia; E87.6 Hypokalemia

== ENCOUNTER 2019-03-08 15:10 | Emergency (ER) | payer MEDICARE ==
[~2019-03-08] VITALS: Ht 162.6 cm; Wt 60.0 kg
[2019-03-08 15:23] VITALS: BP 157/97; Ht 162.6 cm; Wt 60.0 kg
== END 2019-03-08 18:10 | disposition left against medical advice (07) ==
LOC: D.ER 15:10
DX: M79.18 Myalgia, other site (principal); R11.10 Vomiting, unspecified

== ENCOUNTER 2019-05-17 20:55 | Emergency (ER) | payer SELFPAY ==
[~2019-05-17] VITALS: Ht 162.6 cm; Wt 62.7 kg
[2019-05-17 21:09] VITALS: Ht 162.6 cm; Wt 62.7 kg
[2019-05-17 22:32] LABS: BASOPHILS 0 % (0-2); EOSINOPHILS 4.6 % (0-7); HEMATOCRIT 24.3 % (36.0-48.0); LYMPHOCYTES 7.3 % (15-50); MCH 21.3 pg (26.0-34.0); MCHC 27.6 g/dL (31.0-37.0); MCV 77.4 fL (80.0-100.0); MEAN PLATELET VOLUME 9.5 fL (7.4-10.4); MONOCYTES 11.6 % (2-11); NEUTROPHILS 76.5 % (40-80); RBC 3.14 10x6/uL (4.00-5.40); RDW 20.5 % (11.5-14.5); WBC 3.7 10x3/uL (4.8-10.8)
[2019-05-17 22:36] LABS: CALC OSMOLALITY 281 mosm/kg (275-300); CALCIUM 8.1 mg/dL (8.5-10.1); CARBON DIOXIDE 29.6 mmol/L (21.0-32.0); CHLORIDE - SERUM 105 mmol/L (98-107); CREATININE - SERUM 0.6 mg/dL (0.6-1.3); GLUCOSE 86 mg/dL (74-106); POTASSIUM - SERUM 3.4 mmol/L (3.5-5.1); SODIUM 143 mmol/L (136-145); UREA NITROGEN 7 mg/dL (7-18); eGFR NON AFRICAN AMERICAN > 90 mL/min (90-120)
[2019-05-17 22:41] LABS: ALBUMIN 3.7 g/dL (3.4-5.0); ALKALINE PHOSPHATASE 71 U/L (46-116); ALT (SGPT) 19 U/L (10-68); BILIRUBIN - TOTAL 0.17 mg/dL (0.2-1.3); PROTEIN - SERUM 6.9 g/dL (6.4-8.2)
[2019-05-17 22:43] LABS: HEMOGLOBIN 6.7 g/dL (12-16); PLATELET COUNT 364 10x3/uL (130-400)
[2019-05-18 05:26] LABS: BASOPHILS 0.3 % (0-2); EOSINOPHILS 10.5 % (0-7); LYMPHOCYTES 16.6 % (15-50); MCHC 29.8 g/dL (31.0-37.0); MEAN PLATELET VOLUME 9.1 fL (7.4-10.4); MONOCYTES 20.7 % (2-11); NEUTROPHILS 51.9 % (40-80); RBC 3.63 10x6/uL (4.00-5.40); RDW 18.9 % (11.5-14.5)
[2019-05-18 05:39] LABS: HEMATOCRIT 29.2 % (36.0-48.0); HEMOGLOBIN 8.7 g/dL (12-16); MCV 80.4 fL (80.0-100.0); PLATELET COUNT 260 10x3/uL (130-400)
[2019-05-18 05:54] VITALS: BP 127/56
== END 2019-05-18 05:54 | disposition home or self-care (01) ==
LOC: D.ER 20:55
PROVIDERS: Emergency Medicine
DX: D46.4 Refractory anemia, unspecified (principal)

== ENCOUNTER 2019-07-11 15:27 | Inpatient (IN) | payer MEDICARE ==
[~2019-07-11] VITALS: Ht 162.6 cm; Wt 56.8 kg
[2019-07-11] VITALS (8 sets, daily range): BP systolic 118–134; BP diastolic 49–71; Ht 162.6 cm; Wt 56.8 kg
[2019-07-11] MEDS ORDERED: OXYCONTIN30 MG PO (15:44)
--- NOTE | 2019-07-11 16:00 | NUR ---
URINE SPECIMEN OBTAINED, LABELED AT BS AND SENT TO LAB
[2019-07-11 16:12] LABS: BASOPHILS 0.3 % (0-2); EOSINOPHILS 3.6 % (0-7); LYMPHOCYTES 17.2 % (15-50); MCH 20.2 pg (26.0-34.0); MCHC 27.8 g/dL (31.0-37.0); MCV 72.8 fL (80.0-100.0); MEAN PLATELET VOLUME 9.2 fL (7.4-10.4); MONOCYTES 16.5 % (2-11); NEUTROPHILS 62.4 % (40-80); RBC 2.72 10x6/uL (4.00-5.40); RDW 18.7 % (11.5-14.5); WBC 3.1 10x3/uL (4.8-10.8)
[2019-07-11 16:15] LABS: HEMOGLOBIN 5.5 g/dL (12-16)
--- NOTE | 2019-07-11 16:15 | NUR ---
HEATHER TC FROM LAB WITH CRITICAL LAB: HGB=5.5 HCT= 19.8
[2019-07-11 16:16] LABS: APPEARANCE CLEAR (CLEAR); BILIRUBIN NEGATIVE (NEGATIVE); COLOR STRAW (YELLOW); GLUCOSE NEGATIVE (NEGATIVE); HEMATOCRIT 19.8 % (36.0-48.0); KETONE NEGATIVE (NEGATIVE); NITRITE NEGATIVE (NEGATIVE); PLATELET COUNT 475 10x3/uL (130-400); PROTEIN NEGATIVE (NEGATIVE); SPECIFIC GRAVITY 1.005 (1.005-1.020); UROBILINOGEN NORMAL (NORMAL)
--- NOTE | 2019-07-11 16:17 | NUR ---
DR HERNANDEZ NOTIFIED OF [facility]
[2019-07-11 16:23] LABS: CALC OSMOLALITY 280 mosm/kg (275-300); CALCIUM 8.5 mg/dL (8.5-10.1); CHLORIDE - SERUM 106 mmol/L (98-107); CREATININE - SERUM 0.6 mg/dL (0.6-1.3); GLUCOSE 97 mg/dL (74-106); POTASSIUM - SERUM 3.8 mmol/L (3.5-5.1); SODIUM 142 mmol/L (136-145); UREA NITROGEN 7 mg/dL (7-18); eGFR NON AFRICAN AMERICAN > 90 mL/min (90-120)
[2019-07-11 16:29] LABS: APTT 23.8 SECONDS (22.8-39.4); INR 0.92 (0.85-1.17); PROTIME 11.9 SECONDS (11.6-15.0)
--- NOTE | 2019-07-11 16:55 | NUR ---
GUAIC STOOL NEGATIVE, MARCELINA WILLIS NOTIFIED
[2019-07-11 17:04] LABS: ALBUMIN 3.2 g/dL (3.4-5.0); ALKALINE PHOSPHATASE 66 U/L (46-116); ALT (SGPT) 15 U/L (10-68); BILIRUBIN - TOTAL 0.21 mg/dL (0.2-1.3); CKMB 0.6 U/L (0.0-3.6); CREATINE KINASE 35 UL (21-215); PROTEIN - SERUM 6.4 g/dL (6.4-8.2)
[2019-07-11 17:05] LABS: % SATURATION 2 % (15-55); IRON 11 ug/dl (35-150); TOTAL IRON BIND CAPACITY 447 ug/dl (260-445); UNSAT IRON BIND CAPACITY 436 ug/dl (150-375)
[2019-07-11 17:05] LABS: TROPONIN-I < 0.017 ng/mL (0.000-0.060)
--- NOTE | 2019-07-11 18:00 | NUR ---
BLOOD TRANSFUSION INITIATED. VSS. SEE PAPER CHARTING
--- NOTE | 2019-07-11 19:10 | NUR ---
BS REPORT TO FERNANDA JUNIOR
[2019-07-12] VITALS (7 sets, daily range): BP systolic 104–121; BP diastolic 55–74
[2019-07-12 06:09] LABS: BASOPHILS 0 % (0-2); EOSINOPHILS 3.8 % (0-7); LYMPHOCYTES 9.2 % (15-50); MCH 23.1 pg (26.0-34.0); MCHC 30.1 g/dL (31.0-37.0); MONOCYTES 12.3 % (2-11); NEUTROPHILS 74.7 % (40-80); RBC 3.25 10x6/uL (4.00-5.40); RDW 18.4 % (11.5-14.5)
[2019-07-12 06:16] LABS: HEMATOCRIT 24.9 % (36.0-48.0); HEMOGLOBIN 7.5 g/dL (12-16); MCV 76.6 fL (80.0-100.0); PLATELET COUNT 313 10x3/uL (130-400); WBC 4.5 10x3/uL (4.8-10.8)
[2019-07-12 06:36] LABS: ALBUMIN 2.9 g/dL (3.4-5.0); ALKALINE PHOSPHATASE 66 U/L (46-116); BILIRUBIN - TOTAL 0.48 mg/dL (0.2-1.3); CALCIUM 7.8 mg/dL (8.5-10.1); CARBON DIOXIDE 28.6 mmol/L (21.0-32.0); CHLORIDE - SERUM 108 mmol/L (98-107); CREATININE - SERUM 0.6 mg/dL (0.6-1.3); GLUCOSE 98 mg/dL (74-106); MAGNESIUM - SERUM 1.9 mg/dL (1.8-2.4); PHOSPHOROUS 3.8 mg/dL (2.5-4.9); POTASSIUM - SERUM 3.5 mmol/L (3.5-5.1); PROTEIN - SERUM 5.3 g/dL (6.4-8.2); SODIUM 143 mmol/L (136-145); eGFR NON AFRICAN AMERICAN > 90 mL/min (90-120)
[2019-07-12 06:38] LABS: ALT (SGPT) 11 U/L (10-68); CALC OSMOLALITY 283 mosm/kg (275-300); UREA NITROGEN 10 mg/dL (7-18)
--- NOTE | 2019-07-12 08:10 | NUR ---
ALERT AND ORIENTED. LUNGS CLEAR BILATERALLY. HEART SOUNDS S1 AND S2 HEARD IN ALL CLANCY. BOWEL SOUNDS ACTIVE X 4. SKIN INTACT WITHOUT REDNESS. IV TO LFA PATENT WITHOUT REDNESS. LEFT CHEST PORT NOT ACCESSED. DENIES NEEDS. BED LOW. CALL KEITH AND PERSONAL ITEMS IN REACH. WILL CONTINUE TO MONITOR.
--- NOTE | 2019-07-12 08:14 | NUR ---
PATIENT REQUESTING BISCUITS AND GRAVY. ORDER PLACED.
--- NOTE | 2019-07-12 09:00 | NUR ---
PATIENT REQUESTING OXYCONTIN IR. INFORMED THAT OXYCONTIN ER SCHEDULED FOR 929 AND GIVEN OPTION TO TAKE IR INSTEAD. STATES WANTS TO GET ER LATER. INFORMED THAT MED IS SCHEDULED AND CANNOT TAKE LATER BUT CAN TAKE IR INSTEAD. STATES WANTS TO GET ER AND VALIUM. OXYCONTIN ER GIVEN. MARCELINA STORY PAGED TO SEE IF OK TO GIVE VALIUM NOW SINCE JUST GAVE OXYCONTIN ER. WAITING CALL BACK. BP 135/72.
--- NOTE | 2019-07-12 09:35 | NUR ---
SPOKE WITH MARCELINA KHAN WHO STATES OK TO GO AHEAD AND GIVE PRN VALIUM.
--- NOTE | 2019-07-12 09:40 | NUR ---
PRN VALIUM GIVEN. DENIES FURTHER NEEDS. WILL CONTINUE TO MONITOR.
--- NOTE | 2019-07-12 09:57 | NUR ---
REQUESTING TO TALK TO DIETARY ABOUT MENU. DIETARY NOTIFIED AND STATES WILL TALK TO PATIENT.
--- NOTE | 2019-07-12 11:06 | NUR ---
REQUESTED AND GIVEN PRN PAIN MEDICATION.
--- NOTE | 2019-07-12 11:35 | NUR ---
BLOOD CONSENT ON CHART ALREADY. UNIT 1 PRBC INITIATED. VITALS STABLE. WILL CONTINUE TO MONITOR.
--- NOTE | 2019-07-12 11:50 | NUR ---
BLOOD CONTINUES TRANSFUSING. VITALS REMAIN STABLE.
--- NOTE | 2019-07-12 13:54 | NUR ---
PATIENT SLEEPING. BLOOD CONTINUES INFUSING. WILL CONTINUE TO MONITOR.
--- NOTE | 2019-07-12 14:05 | NUR ---
BLOOD TRANSFUSION COMPLETE. VITALS STABLE. FLUSHING LINE. PATIENT C/O PAIN MEDICATION NOT WORKING. OFFERED PRN PAIN MEDICATION. STATES DOES NOT WORK. STATES DR RAMOS DID NOT COME SEE ON ROUNDS. SPOKE WITH MARCELINA KHAN WHO STATES DR RAMOS GONE. STATES PLANS TO DISCHARGE PATIENT.
--- NOTE | 2019-07-12 14:07 | NUR ---
AMEND TO PREVIOUS NOTE. PRN PAIN MEDICATION NOT DUE UNTIL 1500 BUT PATIENT STATES DOES NOT WORK ANYWAY.
--- NOTE | 2019-07-12 15:16 | NUR ---
DISCHARGE EDUCATION PROVIDED BOTH WRITTEN AND VERBAL. PATIENT UPSET ABOUT DISCHARGE. STATES STILL DOES NOT FEEL GOOD. MARCELINA KHAN STATES PATIENT GOOD TO DISCHARGE. STATES NO REASON TO KEEP PATIENT. PATIENT STATES IS GOING TO HAVE HER PRIMARY DOCTOR CALL AND REPORT DR RAMOS TO HOSPITAL. STATES "GIVE ME THE PAPERWORK TO SIGN SO I CAN GET OUT OF HERE." SIGNED DISCHARGE PAPERWORK. IV REMOVED FROM LFA WITH TIP INTACT. REFUSED WHEELCHAIR. WALKED OUT OF HOSPITAL. DISCHARGED HOME WITH ALL BELONGINGS. TELEMETRY RETURNED TO JUL AT MONITOR.
== END 2019-07-12 15:33 | disposition home or self-care (01) | DRG 812 ==
LOC: D.ER 15:27 → D.MS 18:20
PROVIDERS: Family Medicine; ADMIT Internal Medicine Nephrology; ATTEND Internal Medicine Nephrology
DX: D46.9 Myelodysplastic syndrome, unspecified (principal); D50.9 Iron deficiency anemia, unspecified; G89.29 Other chronic pain; K21.9 Gastro-esophageal reflux disease without esophagitis

== ENCOUNTER 2019-08-08 18:57 | Inpatient (IN) | payer MEDICARE ==
[~2019-08-08] VITALS: Ht 162.6 cm; Wt 59.0 kg
[~2019-08-08 18:57] MED LIST changes: +OXYCONTIN30 MG PO
[2019-08-08 19:36] LABS: CALC OSMOLALITY 280 mosm/kg (275-300); CALCIUM 7.6 mg/dL (8.5-10.1); CARBON DIOXIDE 25.5 mmol/L (21.0-32.0); CHLORIDE - SERUM 109 mmol/L (98-107); CREATININE - SERUM 0.5 mg/dL (0.6-1.3); GLUCOSE 100 mg/dL (74-106); POTASSIUM - SERUM 3.6 mmol/L (3.5-5.1); SODIUM 142 mmol/L (136-145); UREA NITROGEN 8 mg/dL (7-18); eGFR NON AFRICAN AMERICAN > 90 mL/min (90-120)
[2019-08-08 19:40] LABS: BASOPHILS 0 % (0-2); EOSINOPHILS 3.2 % (0-7); IMMATURE GRANULOCYTES 0.6 % (0-5); LYMPHOCYTES 14.2 % (15-50); MCHC 25.4 g/dL (31.0-37.0); MCV 73.6 fL (80.0-100.0); MEAN PLATELET VOLUME 8.7 fL (7.4-10.4); RDW 21.1 % (11.5-14.5); WBC 3.5 10x3/uL (4.8-10.8)
[2019-08-08 19:43] LABS: ALBUMIN 2.8 g/dL (3.4-5.0); ALKALINE PHOSPHATASE 71 U/L (46-116); ALT (SGPT) 14 U/L (10-68); BILIRUBIN - TOTAL 0.05 mg/dL (0.2-1.3); PROTEIN - SERUM 5.5 g/dL (6.4-8.2)
[2019-08-08 19:47] LABS: APTT 27.5 SECONDS (22.8-39.4); INR 0.96 (0.85-1.17); PROTIME 12.8 SECONDS (11.6-15.0)
[2019-08-08 19:55] LABS: HEMATOCRIT 13.4 % (36.0-48.0); HEMOGLOBIN 3.4 g/dL (12-16); MCH 18.7 pg (26.0-34.0); PLATELET COUNT 404 10x3/uL (130-400); RBC 1.82 10x6/uL (4.00-5.40)
--- NOTE | 2019-08-08 20:20 | NUR ---
BLOOD CONSENT SIGNED. 1'ST UNIT OF PRBC'S BEGAN.
--- NOTE | 2019-08-08 20:35 | NUR ---
NO SIGNS AND SYMPTOMS OF BLOOD REACTION. FEELING BETTER. EATING ICE CHIPS.
--- NOTE | 2019-08-08 21:08 | NUR ---
PT ARRIVED ON UNIT VIA STRETCHER. TRANSFERRED TO BED AND ORIENTED TO ROOM AND CALL LIGHT. LEFT IP ACCESSED WITH FIRST UNIT OF PRBC'S INFUSING. VITALS STABLE AND PT IS AFEBRILE. DISCUSSED WITH PT TO CALL FOR ASSIST WHEN AMBULATING SHE IS VERY WEAK AT THIS ASSESSMENT.
--- NOTE | 2019-08-08 21:09 | NUR ---
TELEMETRY PLACED PER ORDER.
--- NOTE | 2019-08-08 21:18 | NUR ---
PAGED FAIZAN: CANCELLED BENADRYL ORDER PT IS ALLERGIC. RECEIVED ORDER TO CONTINUE HOME MED, VALIUM 5-10 MG TID PRN ANXIETY.
--- NOTE | 2019-08-08 21:35 | NUR ---
GAVE SANDWICH TRAY AND PUDDING PER REQUEST.
--- NOTE | 2019-08-08 22:22 | NUR ---
COLLECTED URINE FOR ORDERED STUDIES AND DELIVERED TO LAB.
--- NOTE | 2019-08-08 22:35 | NUR ---
1ST UNIT OF PRBC'S COMPLETED AND LINE FLUSHING. VITALS STABLE AND PT REMAINS AFEBRILE.
[2019-08-08 22:52] VITALS: BP 126/68; BMI 22.3
--- NOTE | 2019-08-08 23:05 | NUR ---
ADMISSION ASSESSMENT AND HISTORY COMPLETE.
[2019-08-08 23:17] LABS: APPEARANCE CLEAR (CLEAR); BILIRUBIN NEGATIVE (NEGATIVE); COLOR YELLOW (YELLOW); GLUCOSE NEGATIVE (NEGATIVE); KETONE NEGATIVE (NEGATIVE); NITRITE NEGATIVE (NEGATIVE); PROTEIN NEGATIVE (NEGATIVE); SPECIFIC GRAVITY 1.015 (1.005-1.020); UROBILINOGEN NORMAL (NORMAL)
[2019-08-08 23:20] VITALS: BP 123/58
--- NOTE | 2019-08-08 23:20 | NUR ---
STARTED 2ND UNIT OF PRBC'S. VITALS STABLE AND PT IS AFEBRILE.
--- NOTE | 2019-08-08 23:32 | NUR ---
PT YELLING AND MOANING IN PAIN. GAVE DILAUDID A LITTLE EARLY... MG IVP. PAUSED BLOOD...FLUSHED LINE BEFORE AND AFTER MEDICATION...RE-STARTED BLOOD.
[2019-08-08 23:35] VITALS: BP 122/56
[2019-08-09] VITALS (9 sets, daily range): BP systolic 107–122; BP diastolic 53–74; Ht 162.6 cm; Wt 59.0 kg
--- NOTE | 2019-08-09 00:15 | NUR ---
GAVE X2 POPSICLES PER REQUEST.
--- NOTE | 2019-08-09 01:30 | NUR ---
2ND UNIT OF PRBC'S COMPLETE AND LINE FLUSHING.
--- NOTE | 2019-08-09 02:35 | NUR ---
STARTED 3RD UNIT OF PRBC'S. VITALS STABLE AND PT REMAINS AFEBRILE.
--- NOTE | 2019-08-09 05:07 | NUR ---
GAVE VALIUM 10 MG PO PER REQUEST FOR ANXIETY, PER PRN ORDER.
--- NOTE | 2019-08-09 05:10 | NUR ---
3RD UNIT OF PRBC'S COMPLETE AND LINE FLUSHING. VITALS STABLE AND PT IS AFEBRILE.
--- NOTE | 2019-08-09 06:00 | NUR ---
STARTED 4TH UNIT OF PRBC'S (OUT OF 4 ORDERED). VITALS STABLE AND PT IS AFEBRILE.
--- NOTE | 2019-08-09 06:05 | NUR ---
GAVE X2 CHOCOLATE PUDDINGS PER REQUEST.
[2019-08-09 09:46] LABS: BASOPHILS 0.2 % (0-2); IMMATURE GRANULOCYTES 0.2 % (0-5); LYMPHOCYTES 17.4 % (15-50); MCH 23.6 pg (26.0-34.0); MCHC 30.5 g/dL (31.0-37.0); MEAN PLATELET VOLUME 8.7 fL (7.4-10.4); MONOCYTES 16.7 % (2-11); NEUTROPHILS 59.5 % (40-80); RDW 17.9 % (11.5-14.5)
[2019-08-09 09:47] LABS: HEMATOCRIT 28.2 % (36.0-48.0); HEMOGLOBIN 8.6 g/dL (12-16); MCV 77.3 fL (80.0-100.0); PLATELET COUNT 266 10x3/uL (130-400); RBC 3.65 10x6/uL (4.00-5.40)
[2019-08-09 09:57] LABS: % SATURATION 93 % (15-55); IRON 359 ug/dl (35-150); TOTAL IRON BIND CAPACITY 385 ug/dl (260-445)
[2019-08-09 10:12] LABS: UNSAT IRON BIND CAPACITY 26 ug/dl (150-375)
[2019-08-09 10:29] LABS: ALBUMIN 2.7 g/dL (3.4-5.0); ALKALINE PHOSPHATASE 68 U/L (46-116); ALT (SGPT) 14 U/L (10-68); BILIRUBIN - TOTAL 0.39 mg/dL (0.2-1.3); CALC OSMOLALITY 282 mosm/kg (275-300); CALCIUM 7.5 mg/dL (8.5-10.1); CARBON DIOXIDE 27.2 mmol/L (21.0-32.0); CHLORIDE - SERUM 109 mmol/L (98-107); CREATININE - SERUM 0.5 mg/dL (0.6-1.3); FERRITIN 4 ng/mL (3-244); GLUCOSE 104 mg/dL (74-106); MAGNESIUM - SERUM 1.8 mg/dL (1.8-2.4); PHOSPHOROUS 3.9 mg/dL (2.5-4.9); POTASSIUM - SERUM 3.6 mmol/L (3.5-5.1); PROTEIN - SERUM 5.5 g/dL (6.4-8.2); SODIUM 143 mmol/L (136-145); UREA NITROGEN 7 mg/dL (7-18); eGFR NON AFRICAN AMERICAN > 90 mL/min (90-120)
--- NOTE | 2019-08-09 15:04 | MORECARE ---
CASE MANAGEMENT DISCHARGE SUMMARY PATIENT: VIKAS ESCOBEDO UNIT: [id number] ADM DATE: 08/08/19 AGE: 54 : 63 SEX: F ROOM/BED: D.2225 AUTHOR: TORREY MCKEON PHYSICIAN: REFERRING PHYSICIAN: WILLIS MARTINEZ MD DATE OF SERVICE: 08/09/19 Discharge Plan Patient Name: VIKAS ESCOBEDO Facility: [facility]:[place] : 1965 Planned Disposition: Home Anticipated Discharge Date: 08/09/19 Discharge Date: Expected LOS: 1 Initial Reviewer: [email or web address] Initial Review Date: 08/09/2019 Generated: 08/09/19 4:03 pm Patient Name: VIKAS ESCOBEDO Page 39085 at 1504 All edits/amendments must be made on the electronic document DICTATION DATE: 08/09/19 1503 CARDIOVASCULAR SURGEON: RAFA 08/09/19 1503 RPT#: [id number] DC DATE: STATUS: ADM IN [facility] [address] [place] [address] END OF REPORT
--- NOTE | 2019-08-09 15:13 | MORECARE ---
CASE MANAGEMENT DISCHARGE SUMMARY PATIENT: VIKAS ESCOBEDO UNIT: [id number] ADM DATE: 08/08/19 AGE: 54 : 63 SEX: F ROOM/BED: D.2225 AUTHOR: LINDA,DOC PHYSICIAN: REFERRING PHYSICIAN: WILLIS MARTINEZ MD DATE OF SERVICE: 08/09/19 Discharge Plan Patient Name: VIKAS ESCOBEDO Facility: [facility]:[place] : 1965 Planned Disposition: Home Anticipated Discharge Date: 08/09/19 Discharge Date: Expected LOS: 1 Initial Reviewer: [email or web address] Initial Review Date: 08/09/2019 Generated: 08/09/19 4:13 pm Comments DCP- Discharge Planning Updated by [email or web address]: Dee Weiss on 08/09/19 2:[address] Patient Name: VIKAS ESCOBEDO Admission Status: ER Accout number: [id number] Admission Date: 08-08-2019 : 1965 Admission Diagnosis: Attending: JUAN, Current LOS: 1 Anticipated DC Date: 08-09-2019 Planned Disposition: Home Primary Insurance: MEDICARE PART A ONLY Discharge Planning Comments: CM met with patient to complete initial dc planning assessment. CM educated patient on the CM role and verbal consent given by patient to complete assessment. Patient lives at home alone. States she just moved out of her mom's house, but still uses her home as her address. At discharge patient plans to return and feels this is a safe discharge. CM discussed availability of home health, rehab services, and medical equipment. Patient denied known discharge needs at this time. States when she has her Medicaid approved, she will need some private care. I gave her an [place] application to fill out. She states she knows where the [facility] office is if she needs another application. I gave her the physician referral hot line and also [facility] number if she needed for a new PCP. She declines home health at this time. I called Anam in the [employer] department to have someone assist with filling out Medicaid application. CM will continue to follow and will assist as needed with dc plans/needs. Glove Wrapper: Dee Weiss DCPIA - Discharge Planning Initial Assessment Updated by [email or web address]: Dee Weiss on 08/09/19 3:06 pm * Is the patient Alert and Oriented? Yes * PCP in [place] * Preadmission Environment Home Alone * ADLs Independent * Equipment None * List name and contact numbers for known caregivers / representatives who currently or will assist patient after discharge: Joleen Kay [facility] - [phone] * Verbal permission to speak to the caregivers and representatives has been obtained from the patient. Yes * Community resources currently utilized None * Additional services required to return to the preadmission environment? No * Can the patient safely return to the preadmission environment? Yes * Has this patient been hospitalized within the prior 30 days at any hospital? No Last DP export: 08/09/19 2:04 p Patient Name: VIKAS ESCOBEDO Page 61644 at 1513 All edits/amendments must be made on the electronic document DICTATION DATE: 08/09/191512 CUPOLA MELTER HELPER: RAFA 08/09/191512 RPT#: [id number] DC DATE: STATUS: ADM IN [facility] [address] [place] [address] END OF REPORT
--- NOTE | 2019-08-09 17:18 | NUR ---
DISCHARGE INSTRUCTIONS GIVEN. PATIENT VERBALIZED UNDERSTANDING. DC OF LEFT CHEST PORT PER PROTOCOL. WILL NOTIFY ME AFTER SHE EATS OF HER LEAVING.
--- NOTE | 2019-08-10 08:53 | MORECARE ---
CASE MANAGEMENT DISCHARGE SUMMARY PATIENT: VIKAS ESCOBEDO UNIT: [id number] ADM DATE: 08/08/19 AGE: 54 : 63 SEX: F ROOM/BED: D.2225 AUTHOR: LINDA,DOC PHYSICIAN: REFERRING PHYSICIAN: WILLIS MARTINEZ MD DATE OF SERVICE: 08/10/19 Discharge Plan Patient Name: VIKAS ESCOBEDO Facility: [facility]:[place] : 1965 Planned Disposition: Home Anticipated Discharge Date: 08/09/19 Discharge Date: 08/09/2019 Expected LOS: 1 Initial Reviewer: [email or web address] Initial Review Date: 08/09/2019 Generated: 08/10/19 9:52 am Comments DCP- Discharge Planning Updated by [email or web address]: Dee Weiss on 08/09/19 2:[address] Patient Name: VIKAS ESCOBEDO Admission Status: ER Accout number: [id number] Admission Date: 08-08-2019 : 1965 Admission Diagnosis: Attending: JUAN, Current LOS: 1 Anticipated DC Date: 08-09-2019 Planned Disposition: Home Primary Insurance: MEDICARE PART A ONLY Discharge Planning Comments: CM met with patient to complete initial dc planning assessment. CM educated patient on the CM role and verbal consent given by patient to complete assessment. Patient lives at home alone. States she just moved out of her mom's house, but still uses her home as her address. At discharge patient plans to return and feels this is a safe discharge. CM discussed availability of home health, rehab services, and medical equipment. Patient denied known discharge needs at this time. States when she has her Medicaid approved, she will need some private care. I gave her an [place]cho[place] application to fill out. She states she knows where the [facility] office is if she needs another application. I gave her the physician referral hot line and also [facility] number if she needed for a new PCP. She declines home health at this time. I called Anam in the [employer] department to have someone assist with filling out Medicaid application. CM will continue to follow and will assist as needed with dc plans/needs. Admitting Supervisor: Dee Weiss DCPIA - Discharge Planning Initial Assessment Updated by [email or web address]: Dee Weiss on 08/09/19 3:06 pm * Is the patient Alert and Oriented? Yes * PCP in [place] * Preadmission Environment Home Alone * ADLs Independent * Equipment None * List name and contact numbers for known caregivers / representatives who currently or will assist patient after discharge: Joleen Kay [facility] - [phone] * Verbal permission to speak to the caregivers and representatives has been obtained from the patient. Yes * Community resources currently utilized None * Additional services required to return to the preadmission environment? No * Can the patient safely return to the preadmission environment? Yes * Has this patient been hospitalized within the prior 30 days at any hospital? No Last DP export: 08/09/19 2:13 p Patient Name: VIKAS ESCOBEDO Page 33367 at 0853 All edits/amendments must be made on the electronic document DICTATION DATE: 08/10/19851 WATER WELL DRILLER: RAFA 08/10/19851 RPT#: [id number] DC DATE:08/09/19 STATUS: DIS IN [facility] [address] [place] [address] END OF REPORT
== END 2019-08-09 18:08 | disposition home or self-care (01) | DRG 812 ==
LOC: D.ER 18:57 → D.MS 20:00
PROVIDERS: Family Medicine; ADMIT Family Medicine; ATTEND Family Medicine
DX: D46.1 Refractory anemia with ring sideroblasts (principal); D50.9 Iron deficiency anemia, unspecified; G89.29 Other chronic pain; K21.9 Gastro-esophageal reflux disease without esophagitis

== ENCOUNTER 2019-11-01 19:59 | Outpatient (CLI) | payer SELFPAY ==
[~2019-11-01] VITALS: Ht 162.6 cm; Wt 60.0 kg
[2019-11-01 21:29] LABS: BASOPHILS 0.3 % (0-2); EOSINOPHILS 4.4 % (0-7); LYMPHOCYTES 12.1 % (15-50); MCHC 24.4 g/dL (31.0-37.0); MCV 70.1 fL (80.0-100.0); MEAN PLATELET VOLUME 9.1 fL (7.4-10.4); MONOCYTES 17.9 % (2-11); NEUTROPHILS 65.3 % (40-80); RBC 2.34 10x6/uL (4.00-5.40); RDW 22.7 % (11.5-14.5); WBC 3.9 10x3/uL (4.8-10.8)
[2019-11-01 21:31] LABS: CALC OSMOLALITY 276 mosm/kg (275-300); CALCIUM 7.7 mg/dL (8.5-10.1); CARBON DIOXIDE 26.7 mmol/L (21.0-32.0); CHLORIDE - SERUM 105 mmol/L (98-107); CREATININE - SERUM 0.7 mg/dL (0.6-1.3); GLUCOSE 85 mg/dL (74-106); SODIUM 140 mmol/L (136-145); UREA NITROGEN 10 mg/dL (7-18); eGFR NON AFRICAN AMERICAN > 90 mL/min (90-120)
[2019-11-01 21:36] LABS: ALBUMIN 3.3 g/dL (3.4-5.0); ALKALINE PHOSPHATASE 95 U/L (30-120); ALT (SGPT) 15 U/L (10-68); BILIRUBIN - TOTAL 0.17 mg/dL (0.2-1.3); PROTEIN - SERUM 6.4 g/dL (6.4-8.2)
[2019-11-01 21:43] LABS: HEMATOCRIT 16.4 % (36.0-48.0); MCH 17.1 pg (26.0-34.0)
[2019-11-01 21:44] LABS: PLATELET COUNT 482 10x3/uL (130-400)
[2019-11-01 23:08] LABS: BILIRUBIN NEGATIVE (NEGATIVE); GLUCOSE NEGATIVE (NEGATIVE); KETONE NEGATIVE (NEGATIVE); NITRITE POSITIVE (NEGATIVE); UROBILINOGEN NORMAL (NORMAL)
[2019-11-01 23:10] LABS: BACTERIA MANY /hpf (NEGATIVE); EPITHELIAL CELLS 0-5 /hpf (0-5); RED CELLS - URINE 0-5 /hpf (0-5); WHITE CELLS - URINE 0-5 /hpf (NEGATIVE)
[2019-11-02] VITALS (8 sets, daily range): BP systolic 106–141; BP diastolic 55–77; Ht 162.6 cm; Wt 60.0 kg
--- NOTE | 2019-11-02 00:30 | NUR ---
A&O X 4. REPORTS PAIN 04/27. BLOOD INFUSING AT 200ML/HR TO LEFT HAND. VS STABLE. REQUESTS PUDDING AND COKE. DENIES FURTHER NEEDS, WILL CONTINUE TO MONITOR
[2019-11-02 10:20] LABS: HEMATOCRIT 24.2 % (36.0-48.0); HEMOGLOBIN 6.8 g/dL (12-16)
[2019-11-02 13:38] LABS: CALC OSMOLALITY 281 mosm/kg (275-300); CALCIUM 7.7 mg/dL (8.5-10.1); CARBON DIOXIDE 27.6 mmol/L (21.0-32.0); CHLORIDE - SERUM 106 mmol/L (98-107); CREATININE - SERUM 0.7 mg/dL (0.6-1.3); GLUCOSE 97 mg/dL (74-106); MAGNESIUM - SERUM 1.9 mg/dL (1.8-2.4); PHOSPHOROUS 3.9 mg/dL (2.5-4.9); POTASSIUM - SERUM 3.3 mmol/L (3.5-5.1); SODIUM 142 mmol/L (136-145); UREA NITROGEN 11 mg/dL (7-18); eGFR NON AFRICAN AMERICAN > 90 mL/min (90-120)
[2019-11-02 14:26] LABS: APTT 29.5 SECONDS (22.8-39.4); INR 0.94 (0.85-1.17); PROTIME 12.6 SECONDS (11.6-15.0)
[2019-11-02] MEDS ORDERED: HEMOCYTE PLUS C1 CAP PO (14:58)
[2019-11-02 17:43] LABS: HEMATOCRIT 29.1 % (36.0-48.0); HEMOGLOBIN 8.5 g/dL (12-16)
[2019-11-02] MEDS ORDERED: KEFLEX500 MG PO (18:08)
== END 2019-11-02 18:14 | disposition home or self-care (01) ==
LOC: OBSVTIME → D.OPS 19:59 → D.ER 19:59 → D.MS 23:03 → OBSVTIME 23:03 → D.MS 23:03 → D.ER 23:03 → D.MS 11-02 18:14 → D.OPS 11-02 18:14
PROVIDERS: Family Medicine; Internal Medicine Hematology & Oncology; ATTEND Family Medicine
DX: D50.9 Iron deficiency anemia, unspecified (principal); D46.9 Myelodysplastic syndrome, unspecified; N39.0 Urinary tract infection, site not specified; E87.6 Hypokalemia; G89.29 Other chronic pain; K21.9 Gastro-esophageal reflux disease without esophagitis; D46.4 Refractory anemia, unspecified

== ENCOUNTER 2019-11-29 15:42 | Emergency (ER) | payer MEDICARE ==
[~2019-11-29] VITALS: Ht 162.6 cm; Wt 59.1 kg
[~2019-11-29 15:42] MED LIST changes: +HEMOCYTE PLUS C1 CAP PO; +KEFLEX500 MG PO
[2019-11-29 16:18] VITALS: BP 139/86; Ht 162.6 cm; Wt 59.1 kg
[2019-11-29 16:37] LABS: BASOPHILS 0.1 % (0-2); EOSINOPHILS 1.2 % (0-7); HEMATOCRIT 22.4 % (36.0-48.0); IMMATURE GRANULOCYTES 0.1 % (0-5); LYMPHOCYTES 3.5 % (15-50); MCHC 26.3 g/dL (31.0-37.0); MCV 74.7 fL (80.0-100.0); MEAN PLATELET VOLUME 8.7 fL (7.4-10.4); MONOCYTES 10.9 % (2-11); NEUTROPHILS 84.2 % (40-80); PLATELET COUNT 523 10x3/uL (130-400); RDW 21.8 % (11.5-14.5); WBC 6.9 10x3/uL (4.8-10.8)
[2019-11-29 16:48] LABS: APTT 25.3 SECONDS (22.8-39.4); INR 0.96 (0.85-1.17); PROTIME 12.7 SECONDS (11.6-15.0)
[2019-11-29 16:55] LABS: CALC OSMOLALITY 270 mosm/kg (275-300); CALCIUM 7.9 mg/dL (8.5-10.1); CARBON DIOXIDE 28.3 mmol/L (21.0-32.0); CHLORIDE - SERUM 102 mmol/L (98-107); CREATININE - SERUM 0.7 mg/dL (0.6-1.3); GLUCOSE 99 mg/dL (74-106); POTASSIUM - SERUM 4.1 mmol/L (3.5-5.1); SODIUM 136 mmol/L (136-145); UREA NITROGEN 11 mg/dL (7-18); eGFR NON AFRICAN AMERICAN > 90 mL/min (90-120)
[2019-11-29 17:01] LABS: ALBUMIN 3.5 g/dL (3.4-5.0); ALKALINE PHOSPHATASE 90 U/L (30-120); ALT (SGPT) 20 U/L (10-68); BILIRUBIN - TOTAL 0.17 mg/dL (0.2-1.3); PROTEIN - SERUM 6.8 g/dL (6.4-8.2)
[2019-11-29 17:04] LABS: HEMOGLOBIN 5.9 g/dL (12-16); MCH 19.7 pg (26.0-34.0)
== END 2019-11-29 18:23 | disposition left against medical advice (07) ==
LOC: D.ER 15:42
PROVIDERS: Family Medicine
DX: D64.9 Anemia, unspecified (principal)

== ENCOUNTER 2020-01-14 20:02 | Inpatient (IN) | payer MEDICARE ==
[~2020-01-14] VITALS: Ht 162.6 cm; Wt 61.4 kg
[2020-01-14 21:22] LABS: CALC OSMOLALITY 273 mosm/kg (275-300); CALCIUM 7.5 mg/dL (8.5-10.1); CARBON DIOXIDE 28.4 mmol/L (21.0-32.0); CHLORIDE - SERUM 106 mmol/L (98-107); CREATININE - SERUM 0.7 mg/dL (0.6-1.3); GLUCOSE 114 mg/dL (74-106); POTASSIUM - SERUM 3.4 mmol/L (3.5-5.1); SODIUM 137 mmol/L (136-145); UREA NITROGEN 10 mg/dL (7-18); eGFR NON AFRICAN AMERICAN > 90 mL/min (90-120)
[2020-01-14 21:27] LABS: INR 0.96 (0.85-1.17); PROTIME 12.8 SECONDS (11.6-15.0)
[2020-01-14 21:28] LABS: ALBUMIN 3.1 g/dL (3.4-5.0); ALKALINE PHOSPHATASE 84 U/L (30-120); ALT (SGPT) 14 U/L (10-68); PROTEIN - SERUM 5.7 g/dL (6.4-8.2)
[2020-01-14 21:32] VITALS: BP 120/70
[2020-01-14 21:34] LABS: BASOPHILS 0 % (0-2); EOSINOPHILS 9.2 % (0-7); LYMPHOCYTES 13.6 % (15-50); MCHC 25.3 g/dL (31.0-37.0); MCV 70.3 fL (80.0-100.0); MEAN PLATELET VOLUME 8.9 fL (7.4-10.4); MONOCYTES 14.5 % (2-11); NEUTROPHILS 62.7 % (40-80); RBC 2.19 10x6/uL (4.00-5.40); RDW 21.4 % (11.5-14.5); WBC 3.5 10x3/uL (4.8-10.8)
[2020-01-14 21:37] LABS: HEMATOCRIT 15.4 % (36.0-48.0); HEMOGLOBIN 3.9 g/dL (12-16); MCH 17.8 pg (26.0-34.0); PLATELET COUNT 365 10x3/uL (130-400)
[2020-01-14 21:47] LABS: BILIRUBIN NEGATIVE (NEGATIVE); GLUCOSE NEGATIVE (NEGATIVE); KETONE NEGATIVE (NEGATIVE); NITRITE NEGATIVE (NEGATIVE); SPECIFIC GRAVITY 1.005 (1.005-1.020); UROBILINOGEN NORMAL (NORMAL)
[2020-01-15] VITALS (7 sets, daily range): BP systolic 116–133; BP diastolic 65–82; BMI 23.2
--- NOTE | 2020-01-15 00:29 | NUR ---
PT ARRIVED ON UNIT VIA STRETCHER ESCORTED BY ER NURSE. POSITIONED IN BED FOR COMFORT AND ORIENTED TO ROOM AND CALL LIGHT. LEFT INFUSAPORT ACCESSED AND PATENT WITH 1ST UNIT OF PRBC'S INFUSING. VITALS STABLE AND PT IS AFEBRILE.
--- NOTE | 2020-01-15 01:45 | NUR ---
1ST UNIT OF PRBC'S COMPLETE AND LINE FLUSHING. VITALS REMAIN STABLE.
--- NOTE | 2020-01-15 02:30 | NUR ---
2ND UNIT OF PRBC'S STARTED. VITALS STABLE AND PT REMAINS AFEBRILE. C/O ITCHING...GAVE VALIUM PER REQUEST. WILL CONTINUE TO MONITOR CLOSELY.
--- NOTE | 2020-01-15 08:09 | NUR ---
PT ALERT X 4. BREATH SOUNDS CLEAR BILAT. LEFT CHEST PORT ACCESSED, PT RECIEVING BLOOD. PT REPORTING PAIN OF 7/10, MEDICATED PER ORDERS, WILL CONTINUE TO MONITOR. BED LOW, CALL LIGHT IN REACH. NO OTHER NEEDS AT THIS TIME.
[2020-01-15 10:35] LABS: CALC OSMOLALITY 276 mosm/kg (275-300); CALCIUM 7.4 mg/dL (8.5-10.1); CARBON DIOXIDE 26.6 mmol/L (21.0-32.0); CHLORIDE - SERUM 109 mmol/L (98-107); CREATININE - SERUM 0.7 mg/dL (0.6-1.3); GLUCOSE 104 mg/dL (74-106); POTASSIUM - SERUM 3.9 mmol/L (3.5-5.1); SODIUM 140 mmol/L (136-145); eGFR NON AFRICAN AMERICAN > 90 mL/min (90-120)
[2020-01-15 10:36] LABS: UREA NITROGEN 7 mg/dL (7-18)
[2020-01-15 11:09] LABS: BASOPHILS 0 % (0-2); EOSINOPHILS 15.1 % (0-7); LYMPHOCYTES 17.8 % (15-50); MCH 22.2 pg (26.0-34.0); MCHC 28.9 g/dL (31.0-37.0); MEAN PLATELET VOLUME 9.2 fL (7.4-10.4); MONOCYTES 19.9 % (2-11); NEUTROPHILS 47.2 % (40-80); PLATELET COUNT 331 10x3/uL (130-400); RDW 21.2 % (11.5-14.5); WBC 3.3 10x3/uL (4.8-10.8)
[2020-01-15 11:33] LABS: HEMATOCRIT 26.3 % (36.0-48.0); HEMOGLOBIN 7.6 g/dL (12-16); MCV 76.9 fL (80.0-100.0); RBC 3.42 10x6/uL (4.00-5.40)
[2020-01-15 17:02] LABS: BASOPHILS 0.3 % (0-2); EOSINOPHILS 13.1 % (0-7); HEMOGLOBIN 8.5 g/dL (12-16); IMMATURE GRANULOCYTES 0.5 % (0-5); LYMPHOCYTES 19.1 % (15-50); MCH 22.4 pg (26.0-34.0); MCHC 29.3 g/dL (31.0-37.0); MCV 76.5 fL (80.0-100.0); MEAN PLATELET VOLUME 9.4 fL (7.4-10.4); MONOCYTES 13.6 % (2-11); NEUTROPHILS 53.4 % (40-80); PLATELET COUNT 312 10x3/uL (130-400); RBC 3.79 10x6/uL (4.00-5.40); RDW 20.6 % (11.5-14.5); WBC 3.7 10x3/uL (4.8-10.8)
--- NOTE | 2020-01-15 19:00 | NUR ---
BEDSIDE REPORT RECEIVED AND CARE OF PT ASSUMED. PT LYING ON LEFT SIDE WITH EYES CLOSED. LEFT IP ACCESSED AND SALINE LOCKED. WILL MONITOR FOR NEEDS.
--- NOTE | 2020-01-15 20:07 | NUR ---
HS MEDICATIONS GIVEN TO INCLUDE OXY 15 MG PO PER PT REQUEST FOR PAIN. WILL CONTINUE TO MONITOR FOR NEEDS. FAMILY MEMBER IS AT BEDSIDE, AND BROUGHT FOOD FROM HOME FOR HS SNACK.
[2020-01-16 00:17] VITALS: BP 118/76
[2020-01-16 05:30] VITALS: BP 131/75
--- NOTE | 2020-01-16 08:12 | NUR ---
ALERT AND ORIENTED. LUNGS CLEAR BILATERALLY. HEART SOUNDS S1 AND S2 HEARD IN ALL CLANCY. BOWEL SOUNDS ACTIVE X 4. LEFT CP PATENT WITHOUT REDNESS. DENIES NEEDS. BED LOW. CALL KEITH AND PERSONAL ITEMS INR EACH. [facility] TO MONITOR.
[2020-01-16 08:21] VITALS: BP 119/72
[2020-01-16 12:06] VITALS: BP 117/63
--- NOTE | 2020-01-16 12:17 | NUR ---
RESTING IN BED. DENIES NEEDS. WILL CONTINUE TO MONITOR.
[2020-01-16] MEDS ORDERED: BACTRIM DS TAB1 EAC1 PO (14:36)
--- NOTE | 2020-01-16 15:31 | NUR ---
DISCHARGE EDUCATION PROVIDED BOTH WRITTEN AND VERBAL. VERBALIZED UNDERSTANDING. DENIES FURTHER QUESTIONS. LEFT CHEST PORT DEACCESSED FOR DC. PATIENT DC HOME WITH ALL BELONGINGS.
[2020-01-18 17:47] VITALS: Ht 162.6 cm; Wt 61.4 kg
== END 2020-01-16 15:42 | disposition home or self-care (01) | DRG 812 ==
LOC: D.ER 20:02 → OBSVTIME 23:26 → D.MS 23:26 → D.SDCHOLD 01-15 14:47 → D.MS 01-15 14:47
PROVIDERS: Emergency Medicine; Family Medicine; ADMIT Family Medicine; ATTEND Family Medicine
DX: D46.9 Myelodysplastic syndrome, unspecified (principal); D50.9 Iron deficiency anemia, unspecified; E87.6 Hypokalemia; K21.9 Gastro-esophageal reflux disease without esophagitis; G89.29 Other chronic pain; R53.1 Weakness

== ENCOUNTER 2020-02-11 20:20 | Inpatient (IN) | payer MEDICARE ==
[~2020-02-11] VITALS: Ht 162.6 cm; Wt 61.5 kg
[~2020-02-11 20:20] MED LIST changes: +BACTRIM DS TAB1 EAC1 PO
[2020-02-11 21:08] LABS: BASOPHILS 0.3 % (0-2); EOSINOPHILS 7.8 % (0-7); IMMATURE GRANULOCYTES 0.3 % (0-5); LYMPHOCYTES 16.2 % (15-50); MCHC 25.5 g/dL (31.0-37.0); MCV 73.8 fL (80.0-100.0); MONOCYTES 16.5 % (2-11); NEUTROPHILS 58.9 % (40-80); PLATELET COUNT 326 10x3/uL (130-400); RDW 22.2 % (11.5-14.5); WBC 3.1 10x3/uL (4.8-10.8)
[2020-02-11 21:16] LABS: ANION GAP 6.2 mmol/L (8-16); CALCIUM 8.1 mg/dL (8.5-10.1); CARBON DIOXIDE 29.7 mmol/L (21.0-32.0); POTASSIUM - SERUM 3.9 mmol/L (3.5-5.1)
[2020-02-11 21:17] LABS: APTT 43.7 SECONDS (22.8-39.4); INR 0.96 (0.85-1.17); PROTIME 12.8 SECONDS (11.6-15.0)
[2020-02-11 21:21] LABS: HEMOGLOBIN 3.6 g/dL (12-16)
[2020-02-11 21:22] LABS: HEMATOCRIT 14.1 % (36.0-48.0); MCH 18.8 pg (26.0-34.0); RBC 1.91 10x6/uL (4.00-5.40)
[2020-02-11 21:24] LABS: ALBUMIN 2.8 g/dL (3.4-5.0); BILIRUBIN - TOTAL 0.15 mg/dL (0.2-1.3); PROTEIN - SERUM 5.4 g/dL (6.4-8.2)
--- NOTE | 2020-02-11 22:17 | NUR ---
CONSENT FOR BLOOD TRANSFUSION OBTAINED. FLOOR NURSE NOTIFIED ABOUT BLOOD NOT BEING STARTED IN ED D/T LAB NOT HAVING BLOOD READY YET. SHE VOICED UNDERSTANDING.
[2020-02-11 22:33] VITALS: BP 144/83; Ht 162.6 cm; Wt 61.5 kg
--- NOTE | 2020-02-11 23:21 | NUR ---
FIRST UNIT OF BLOOD INITIATED. VITAL SIGNS STABLE. NO SIGNS OR SYMPTOMS OF DITRESS AT THIS TIME.
--- NOTE | 2020-02-11 23:40 | NUR ---
PATIENT STATES THAT SHE HAS HAD SEVERAL BLOOD TRANSFUSIONS BEFORE AND THE BEST "RATE FOR HER" IS AT 125 OR LESS. PATIENT PREFERS 100 ML PER HOUR.
--- NOTE | 2020-02-12 02:12 | NUR ---
PATIENT SIGNED BED ALARM REFUSAL FORM. PLACED IN CHART.
--- NOTE | 2020-02-12 03:02 | NUR ---
SECOND UNIT OF BLOOD INITIATED. PATIENT RESTING. VITAL SIGNS ARE STABLE. NO SIGNS OR SYMTPOMS OF DISTRESS AT THIS TIME. CPOC.
[2020-02-12 04:00] VITALS: BP 120/58
--- NOTE | 2020-02-12 04:21 | NUR ---
PATIENT REFUSES SCD'S
--- NOTE | 2020-02-12 06:40 | NUR ---
THIRD UNIT OF BLOOD INITIATED. VITAL SIGNS REMAIN STABLE. DENIES FURTHER NEEDS. NO DISTRESS OR ISSUES NOTED AT THIS TIME. CPOC.
[2020-02-12 08:00] VITALS: BP 120/67
--- NOTE | 2020-02-12 08:15 | NUR ---
PT RESTING QUIETLY IN BED WITH EYES CLOSED. OPENS EYES SPONTANEOUSLY. RESP EVEN AND UNLABORED. PT HAS 3RD UNIT PRBC INFUSING TO LEFT CHEST PORT. SITE WITHOUT REDNESS OR EDEMA. PT CLAUDIA BLOOD TRANSFUSION WELL. REPORTS PAIN 6/10 AT THIS TIME. DISCUSSED NEXT TIME PAIN MEDICATION COULD BE ADMINISTERED. PT VOICES UNDERSTANDING. DENIES FURTHER NEEDS AT THIS TIME. CL WITHIN REACH. ENCOURAGED TO CALL WITH NEEDS. CONTINUE POC
[2020-02-12 11:00] VITALS: BP 122/64
[2020-02-12 15:04] LABS: BASOPHILS 0.3 % (0-2); EOSINOPHILS 8.3 % (0-7); IMMATURE GRANULOCYTES 0.6 % (0-5); LYMPHOCYTES 11.4 % (15-50); MCH 23.8 pg (26.0-34.0); MCHC 30.2 g/dL (31.0-37.0); MONOCYTES 16.8 % (2-11); NEUTROPHILS 62.6 % (40-80); PLATELET COUNT 300 10x3/uL (130-400); RDW 19.1 % (11.5-14.5); WBC 3.5 10x3/uL (4.8-10.8)
[2020-02-12 15:14] LABS: HEMATOCRIT 29.1 % (36.0-48.0); HEMOGLOBIN 8.8 g/dL (12-16); MCV 78.9 fL (80.0-100.0); RBC 3.69 10x6/uL (4.00-5.40)
[2020-02-12] MEDS ORDERED: HEMOCYTE PLUS C1 CAP PO (15:53)
[2020-02-12 16:40] VITALS: BP 140/83
--- NOTE | 2020-02-12 17:04 | MORECARE ---
CASE MANAGEMENT DISCHARGE SUMMARY PATIENT: VIKAS ESCOBEDO UNIT: [id number] ADM DATE: 02/11/20 AGE: 54 : 63 SEX: F ROOM/BED: D.2205 AUTHOR: TORREY MCKEON PHYSICIAN: REFERRING PHYSICIAN: GARRETT CORTEZ MD DATE OF SERVICE: 02/12/20 Discharge Plan Patient Name: VIKAS ESCOBEDO Facility: [facility]:[place] : 1965 Planned Disposition: Home or Self Care Anticipated Discharge Date: Discharge Date: Expected LOS: Initial Reviewer: [email or web address] Initial Review Date: 02/11/2020 Generated: 02/12/20 6:03 pm DCPIA - Discharge Planning Initial Assessment Updated by [email or web address]: Karin Dyson on 02/12/20 5:01 pm * Is the patient Alert and Oriented? Yes * How many steps to enter\exit or inside your home? * PCP J[facility] LUIS IN [place] * Pharmacy [facility] * Preadmission Environment Home with Family * ADLs Independent * Equipment None * List name and contact numbers for known caregivers / representatives who currently or will assist patient after discharge: LIO (MOTHER) [phone] * Verbal permission to speak to the caregivers and representatives has been obtained from the patient. N/A * Community resources currently utilized None * Additional services required to return to the preadmission environment? No * Can the patient safely return to the preadmission environment? Yes * Has this patient been hospitalized within the prior 30 days at any hospital? Yes Patient Name: VIKAS ESCOBEDO Page 51827 at 1704 All edits/amendments must be made on the electronic document DICTATION DATE: 02/12/201703 CIVIL ENGINEERING MANAGER: RAFA 02/12/201703 RPT#: [id number] DC DATE: STATUS: ADM IN [facility] [address] [place] [address] END OF REPORT
--- NOTE | 2020-02-12 17:11 | MORECARE ---
CASE MANAGEMENT DISCHARGE SUMMARY PATIENT: VIKAS ESCOBEDO UNIT: [id number] ADM DATE: 02/11/20 AGE: 54 : 63 SEX: F ROOM/BED: D.2200 AUTHOR: LINDA,DOC PHYSICIAN: REFERRING PHYSICIAN: GARRETT CORTEZ MD DATE OF SERVICE: 02/12/20 Discharge Plan Patient Name: VIKAS ESCOBEDO Facility: [facility]:[place] : 1965 Planned Disposition: Home or Self Care Anticipated Discharge Date: Discharge Date: Expected LOS: Initial Reviewer: [email or web address] Initial Review Date: 02/11/2020 Generated: 02/12/20 6:10 pm Comments DCP- Discharge Planning Updated by [id number]: Karin Dyson on 02/12/20 4:[address] Patient Name: VIKAS ESCOBEDO Admission Status: ER Accout number: [id number] Admission Date: 02-11-2020 : 1965 Admission Diagnosis: Attending: TREVER CORTEZ Current LOS: 1 Anticipated DC Date: Planned Disposition: Home or Self Care Primary Insurance: MEDICARE PART A ONLY Discharge Planning Comments: CM MET WITH PATIENT TO ASSESS DC PLANNING, SHE HAS EVERYTHING SHE NEEDS. AT THIS TIME SHE DOES NOT NEED HOME HEALTH AND STATED SHE IS IN THE PROCESS OF DOING THE SPIN DOWN WITH [place]? SHE LIVES WITH HER SON AND HER FRIEND WILL DRIVE HER HOME. Gas Desulfurizer: Karin Dyson DCPIA - Discharge Planning Initial Assessment Updated by [email or web address]: Karin Dyson on 02/12/20 5:01 pm * Is the patient Alert and Oriented? Yes * How many steps to enter\exit or inside your home? * PCP [facility] IN [facility] * [facility] * Preadmission Environment Home with Family * ADLs Independent * Equipment None * List name and contact numbers for known caregivers / representatives who currently or will assist patient after discharge: LIO (MOTHER) [phone] * Verbal permission to speak to the caregivers and representatives has been obtained from the patient. N/A * Community resources currently utilized None * Additional services required to return to the preadmission environment? No * Can the patient safely return to the preadmission environment? Yes * Has this patient been hospitalized within the prior 30 days at any hospital? Yes Last DP export: 02/12/20 4:04 p Patient Name: VIKAS ESCOBEDO Page 16718 at 1711 All edits/amendments must be made on the electronic document DICTATION DATE: 02/12/201710 INSTRUCTIONAL RESOURCE TEACHER: RAFA 02/12/201710 RPT#: [id number] DC DATE: STATUS: ADM IN [facility] [address] [place] [address] END OF REPORT
--- NOTE | 2020-02-13 14:44 | MORECARE ---
CASE MANAGEMENT DISCHARGE SUMMARY PATIENT: VIKAS ESCOBEDO UNIT: [id number] ADM DATE: 02/11/20 AGE: 54 : 63 SEX: F ROOM/BED: D.2203 AUTHOR: LINDA,DOC PHYSICIAN: REFERRING PHYSICIAN: GARRETT CORTEZ MD DATE OF SERVICE: 02/13/20 Discharge Plan Patient Name: VIKAS ESCOBEDO Facility: [facility]:[place] : 1965 Planned Disposition: Home or Self Care Anticipated Discharge Date: Discharge Date: 02/12/2020 Expected LOS: Initial Reviewer: [email or web address] Initial Review Date: 02/11/2020 Generated: 02/13/20 3:43 pm DCP- Discharge Planning Updated by [email or web address]: Karin Dyson on 02/12/20 4:[address] Patient Name: VIKAS ESCOBEDO Admission Status: ER Accout number: [id number] Admission Date: 02-11-2020 : 1965 Admission Diagnosis: Attending: TREVER CORTEZ Current LOS: 1 Anticipated DC Date: Planned Disposition: Home or Self Care Primary Insurance: MEDICARE PART A ONLY Discharge Planning Comments: CM MET WITH PATIENT TO ASSESS DC PLANNING, SHE HAS EVERYTHING SHE NEEDS. AT THIS TIME SHE DOES NOT NEED HOME HEALTH AND STATED SHE IS IN THE PROCESS OF DOING THE SPIN DOWN WITH [facility]? SHE LIVES WITH HER SON AND HER FRIEND WILL DRIVE HER HOME. Leather Tooler: Karin Dyson DCPIA - Discharge Planning Initial Assessment Updated by [email or web address]: Karin Dyosn on 02/12/20 5:01 pm * Is the patient Alert and Oriented? Yes * How many steps to enter\exit or inside your home? * PCP [facility] IN [facility] * [facility]acy [facility] * Preadmission Environment Home with Family * ADLs Independent * Equipment None * List name and contact numbers for known caregivers / representatives who currently or will assist patient after discharge: LIO (MOTHER) [phone] * Verbal permission to speak to the caregivers and representatives has been obtained from the patient. N/A * Community resources currently utilized None * Additional services required to return to the preadmission environment? No * Can the patient safely return to the preadmission environment? Yes * Has this patient been hospitalized within the prior 30 days at any hospital? Yes Last DP export: 02/12/20 4:11 p Patient Name: VIKAS ESCOBEDO Page 47755 at 1444 All edits/amendments must be made on the electronic document DICTATION DATE: 02/13/20 1443 ACCOUNT RETENTION REPRESENTATIVE: RAFA 02/13/20 1443 RPT#: [id number] DC DATE:02/12/20 STATUS: DIS IN [facility] [address] [place] [address] END OF REPORT
== END 2020-02-12 17:46 | disposition home or self-care (01) | DRG 812 ==
LOC: D.ER 20:20 → D.MS 21:42 → OBSVTIME 21:42 → D.MS 21:44
PROVIDERS: Emergency Medicine; Family Medicine; ADMIT Emergency Medicine; ATTEND Emergency Medicine
DX: D50.9 Iron deficiency anemia, unspecified (principal); D46.9 Myelodysplastic syndrome, unspecified; K21.9 Gastro-esophageal reflux disease without esophagitis; G89.4 Chronic pain syndrome

== ENCOUNTER 2020-03-12 15:58 | Inpatient (IN) | payer MEDICARE ==
[~2020-03-12] VITALS: Ht 162.6 cm; Wt 59.1 kg
[2020-03-12 17:01] LABS: BASOPHILS 0.3 % (0-2); LYMPHOCYTES 16.2 % (15-50); MCHC 26.3 g/dL (31.0-37.0); MCV 74.4 fL (80.0-100.0); MEAN PLATELET VOLUME 8.7 fL (7.4-10.4); MONOCYTES 18.5 % (2-11); PLATELET COUNT 336 10x3/uL (130-400); RBC 2.15 10x6/uL (4.00-5.40); RDW 20.4 % (11.5-14.5)
[2020-03-12 17:10] LABS: CALC OSMOLALITY 273 mosm/kg (275-300); CALCIUM 7.8 mg/dL (8.5-10.1); CARBON DIOXIDE 27.2 mmol/L (21.0-32.0); CHLORIDE - SERUM 108 mmol/L (98-107); CREATININE - SERUM 0.7 mg/dL (0.6-1.3); GLUCOSE 94 mg/dL (74-106); POTASSIUM - SERUM 3.9 mmol/L (3.5-5.1); SODIUM 138 mmol/L (136-145); UREA NITROGEN 7 mg/dL (7-18); eGFR NON AFRICAN AMERICAN > 90 mL/min (90-120)
[2020-03-12 17:12] LABS: MCH 19.5 pg (26.0-34.0)
[2020-03-12 17:13] LABS: HEMOGLOBIN 4.2 g/dL (12-16)
[2020-03-12 17:16] LABS: ALBUMIN 3.1 g/dL (3.4-5.0); ALKALINE PHOSPHATASE 75 U/L (30-120); ALT (SGPT) 15 U/L (10-68); BILIRUBIN - TOTAL 0.08 mg/dL (0.2-1.3)
[2020-03-12 20:05] VITALS: BP 119/75
[2020-03-12 21:44] VITALS: BP 131/73
[2020-03-12 22:35] VITALS: BP 119/67
--- NOTE | 2020-03-12 23:04 | NUR ---
1ST UNIT OF PRBC INFUSION COMPLETE. FLUSHING UPON SHIFT CHANGE.
--- NOTE | 2020-03-12 23:05 | NUR ---
REPORT GIVEN TO FERNANDA TUCKER
[2020-03-12 23:47] VITALS: BP 132/80
[2020-03-13] VITALS (11 sets, daily range): BP systolic 123–170; BP diastolic 67–99
--- NOTE | 2020-03-13 02:30 | NUR ---
PT ASKING FOR PILLOW. STATES "I HAVE BEEN HERE FOR OVER 12 HOURS AND NO ONE HAS EVEN OFFERED ME A PILLOW YET." WHEN THIS NURSE STATES, "OF COURSE," PT MOCKED NURSE. PT GIVEN PERSONAL DISPOSABLE PILLOWS X2 FOR COMFORT, THEN GIVEN REGULAR SIZED PILLOW. ALSO ASKING FOR IV PAIN MEDICATION. HOWEVER, ACCORDING TO EMAR MEDICATION NOT DUE FOR ANOTHER TWENTY FIVE MINUTES. PT MADE AWARE OF TIME FOR NEXT DOSE PAIN MEDICATION.
[2020-03-13 07:15] LABS: BASOPHILS 0 % (0-2); EOSINOPHILS 12.5 % (0-7); IMMATURE GRANULOCYTES 0.4 % (0-5); LYMPHOCYTES 20.9 % (15-50); MCH 22.6 pg (26.0-34.0); MCHC 28.9 g/dL (31.0-37.0); MEAN PLATELET VOLUME 8.8 fL (7.4-10.4); MONOCYTES 18.7 % (2-11); NEUTROPHILS 47.5 % (40-80); RDW 19.7 % (11.5-14.5); WBC 2.7 10x3/uL (4.8-10.8)
--- NOTE | 2020-03-13 07:15 | NUR ---
ASSUMED CARE OF PT. PT RESTING IN BED, A/A/OX3. C/O LEG PAIN AND RLQ PAIN "I HAVE A HERNIA AND SOMETIMES IF I SIT UP WRONG IT STARTS HURTING" MEDICATED FOR PAIN PER PRN ORDERS. RESP EVEN/UNALBORED. IP LEFT UPPER CHEST WITH DELFING D/I
[2020-03-13 07:31] LABS: RBC 3.18 10x6/uL (4.00-5.40)
[2020-03-13 07:32] LABS: HEMATOCRIT 24.9 % (36.0-48.0); HEMOGLOBIN 7.2 g/dL (12-16); MCV 78.3 fL (80.0-100.0); PLATELET COUNT 264 10x3/uL (130-400)
--- NOTE | 2020-03-13 07:36 | NUR ---
CRITICAL LAB: HGB: 7.2 DR STEPHANIE WHITE
--- NOTE | 2020-03-13 07:45 | NUR ---
DR BROWN CALLED BACK ORDERED TO TYPE AND CROSS AND INFUSE 2 UNITS SLOWLY. ALSO INSTR TO PAGE/NOTIFY DR MORRELL
--- NOTE | 2020-03-13 08:14 | NUR ---
DR MORRELL CALLED BACK. INFORMED OF HGB 7.[address] BROWN ORDERED [address] MORRELL AGREED AND REPORTS POSSIBLY HOME AFTER TRANSFUSION, WILL COME AND SEE IN ER
--- NOTE | 2020-03-13 08:30 | NUR ---
PAIN "TOLERABLE NOW"
[2020-03-13 08:36] LABS: CALC OSMOLALITY 275 mosm/kg (275-300); CALCIUM 7.2 mg/dL (8.5-10.1); CARBON DIOXIDE 24.6 mmol/L (21.0-32.0); CHLORIDE - SERUM 110 mmol/L (98-107); CREATININE - SERUM 0.6 mg/dL (0.6-1.3); GLUCOSE 87 mg/dL (74-106); PHOSPHOROUS 3.6 mg/dL (2.5-4.9); POTASSIUM - SERUM 4.1 mmol/L (3.5-5.1); SODIUM 140 mmol/L (136-145); UREA NITROGEN 8 mg/dL (7-18); eGFR NON AFRICAN AMERICAN > 90 mL/min (90-120)
--- NOTE | 2020-03-13 08:50 | NUR ---
BLOOD TRANSFUSION INITATED SEE PAPER DOCUMENTATION
--- NOTE | 2020-03-13 10:49 | NUR ---
RESTING IN BED WITH EYES CLSOED. BLOOD TRANSFUSION INFUSING WITHOUT PBMS.
--- NOTE | 2020-03-13 12:38 | NUR ---
1ST UNIT PRBC COMPLETE. CLAUDIA WELL. VSS
--- NOTE | 2020-03-13 12:40 | NUR ---
2ND UNIT PRBC'S INITIATED. SEE PAPER CHARTING
--- NOTE | 2020-03-13 14:30 | NUR ---
PT C/O INCREASED LEG PAIN REQUESTING PAIN MED. INFORMED HER MORPHINE CAN'T BE ADMIN UNTIL [id number]. "I CAN'T WAIT CAN YOU CALL AND GET ME SOMETHING NOW" DR STEPHANIE WHITE
--- NOTE | 2020-03-13 14:49 | NUR ---
DR DUDLEY CALLED BACK,INFORMED OF PTS REQUEST FOR PAIN MED. INSTR OK TO GIVE MORPHINE DOSE ORDERED NOW/EARLY
--- NOTE | 2020-03-13 15:28 | NUR ---
RESTING IN BED. "PAIN A LITTLE BETTER. I THINK I JUST NEED TO BURP" REQUESTING 7 UP. VSS STABLE. BLOOD TRANSFUSION INFUSING WITHOUT PROBLEMS
--- NOTE | 2020-03-13 15:56 | NUR ---
BLOOD TRANSFUSION COMPLETE. PT CLAUDIA WELL. ONLY C/O IS SUBSTERNAL CHEST HEAVINESS. LS CTA BILAT. RESP EVEN/UNLOABORED. DENIES N/V. DR DUDLEY PAGED
--- NOTE | 2020-03-13 16:21 | NUR ---
DR DUDLEY CALLED BACK ORDERED EKG AND CXR
--- NOTE | 2020-03-13 16:57 | NUR ---
CXR RESULTS BACK, PAGED DR DUDLEY
--- NOTE | 2020-03-13 17:30 | NUR ---
BILL LOYA APN HERE AT [facility] ST[facility] INFORMED OF PTS C/O ":CHEST HEAVINESS" AND RESULTS OF CXR. ORDER RCVD FOR LASIX 20 MG IV X 1
--- NOTE | 2020-03-13 19:17 | NUR ---
REPORT DANIEL HOGAN RN
[2020-03-14] VITALS: BP 143/76
[2020-03-14 01:39] VITALS: BP 143/76; BMI 22.3
[2020-03-14 04:00] VITALS: BP 118/66
--- NOTE | 2020-03-14 06:18 | NUR ---
I have reviewed this patient and I concur with the Shift Assessment completed by the Licensed Practical Nurse today this shift.
[2020-03-14 06:49] LABS: BASOPHILS 0 % (0-2); EOSINOPHILS 12.2 % (0-7); IMMATURE GRANULOCYTES 0.2 % (0-5); LYMPHOCYTES 15.1 % (15-50); MCH 23.8 pg (26.0-34.0); MCV 79.1 fL (80.0-100.0); MEAN PLATELET VOLUME 10.2 fL (7.4-10.4); MONOCYTES 16.2 % (2-11); NEUTROPHILS 56.3 % (40-80); PLATELET COUNT 266 10x3/uL (130-400); RDW 19.4 % (11.5-14.5)
[2020-03-14 06:50] LABS: HEMATOCRIT 33.3 % (36.0-48.0); RBC 4.21 10x6/uL (4.00-5.40); WBC 4.7 10x3/uL (4.8-10.8)
[2020-03-14 07:06] LABS: CALC OSMOLALITY 277 mosm/kg (275-300); CALCIUM 8.2 mg/dL (8.5-10.1); CARBON DIOXIDE 29.9 mmol/L (21.0-32.0); CHLORIDE - SERUM 105 mmol/L (98-107); CREATININE - SERUM 0.7 mg/dL (0.6-1.3); GLUCOSE 103 mg/dL (74-106); MAGNESIUM - SERUM 2.1 mg/dL (1.8-2.4); PHOSPHOROUS 4.5 mg/dL (2.5-4.9); POTASSIUM - SERUM 3.9 mmol/L (3.5-5.1); SODIUM 140 mmol/L (136-145); eGFR NON AFRICAN AMERICAN > 90 mL/min (90-120)
[2020-03-14 07:09] LABS: UREA NITROGEN 11 mg/dL (7-18)
[2020-03-14 09:12] VITALS: BP 132/80
[2020-03-14 13:02] VITALS: BP 136/85
[2020-03-14 13:37] LABS: BILIRUBIN NEGATIVE (NEGATIVE); KETONE NEGATIVE (NEGATIVE); NITRITE NEGATIVE (NEGATIVE); UROBILINOGEN NORMAL (NORMAL)
--- NOTE | 2020-03-14 14:44 | MORECARE ---
CASE MANAGEMENT DISCHARGE SUMMARY PATIENT: VIKAS ESCOBEDO UNIT: [id number] ADM DATE: 03/12/20 AGE: 54 : 63 SEX: F ROOM/BED: D.2210 AUTHOR: TORREY MCKEON PHYSICIAN: REFERRING PHYSICIAN: FERNANDO BROWN MD DATE OF SERVICE: 03/14/20 Discharge Plan Patient Name: VIKAS ESCOBEDO Facility: [facility]:[place] : 1965 Planned Disposition: Home or Self Care Anticipated Discharge Date: Discharge Date: Expected LOS: Initial Reviewer: [email or web address] Initial Review Date: 03/13/2020 Generated: 03/14/20 3:44 pm Patient Name: VIKAS ESCOBEDO Page 88423 at 1444 All edits/amendments must be made on the electronic document DICTATION DATE: 03/14/20 1444 SENIOR WEB ENGINEER: RAFA 03/14/20 1444 RPT#: [id number] DC DATE: STATUS: ADM IN [facility] [address] [place] [address] END OF REPORT
--- NOTE | 2020-03-14 14:53 | MORECARE ---
CASE MANAGEMENT DISCHARGE SUMMARY PATIENT: VIKAS ESCOBEDO UNIT: [id number] ADM DATE: 03/12/20 AGE: 54 : 63 SEX: F ROOM/BED: D.2210 AUTHOR: LINDADOC PHYSICIAN: REFERRING PHYSICIAN: FERNANDO BROWN MD DATE OF SERVICE: 03/14/20 Discharge Plan Patient Name: VIKAS ESCOBEDO Facility: [facility]:[place] : 1965 Planned Disposition: Home or Self Care Anticipated Discharge Date: Discharge Date: Expected LOS: Initial Reviewer: [email or web address] Initial Review Date: 03/13/2020 Generated: 03/14/20 3:53 pm Comments DCP- Discharge Planning Updated by [email or web address]: Karin Dyson on 03/14/20 1:[address] Patient Name: VIKAS ESCOBEDO Admission Status: ER Accout number: [id number] Admission Date: 03-12-2020 : 1965 Admission Diagnosis: Attending: FERNANDO BROWN Current LOS: 2 Anticipated DC Date: Planned Disposition: Home or Self Care Primary Insurance: MEDICARE PART A ONLY Discharge Planning Comments: CM MET WITH PATIENT TO ASSESS DISCHARGE NEEDS. SHE IS INDEPENDENT WITH HER CARE SHE DOES NOT WANT HOME HEALTH, DECLINATION SIGNED. SHE WILL CALL HER FRIEND, SON OR A TAXI TO TAKE HER HOME. SHE DOES NOT FEEL SHE NEEDS HH AT THIS TIME. Tooth Polisher: Karin Dyson DCPIA - Discharge Planning Initial Assessment Updated by [email or web address]: Kairn Dyson on 03/14/20 2:49 pm * Is the patient Alert and Oriented? Yes * PCP [facility] IN [facility] * Pharmacy [facility] * Preadmission Environment Home with Family * ADLs Independent * Equipment None * List name and contact numbers for known caregivers / representatives who currently or will assist patient after discharge: LIO ( MOTHER) [phone] * Verbal permission to speak to the caregivers and representatives has been obtained from the patient. N/A * Community resources currently utilized None * Additional services required to return to the preadmission environment? No * Can the patient safely return to the preadmission environment? Yes * Has this patient been hospitalized within the prior 30 days at any hospital? Yes Last DP export: 03/14/20 1:44 p Patient Name: VIKAS ESCOBEDO Page 54068 at 1453 All edits/amendments must be made on the electronic document DICTATION DATE: 03/14/201452 AGER OPERATOR: RAFA 03/14/201452 RPT#: [id number] DC DATE: STATUS: ADM IN [facility] [address] [place] [address] END OF REPORT
--- NOTE | 2020-03-14 16:32 | MORECARE ---
CASE MANAGEMENT DISCHARGE SUMMARY PATIENT: VIKAS ESCOBEDO UNIT: [id number] ADM DATE: 03/12/20 AGE: 54 : 63 SEX: F ROOM/BED: D.2210 AUTHOR: LINDA,DOC PHYSICIAN: REFERRING PHYSICIAN: FERNANDO BROWN MD DATE OF SERVICE: 03/14/20 Discharge Plan Patient Name: VIKAS ESCOBEDO Facility: [facility]:[place] : 1965 Planned Disposition: Home or Self Care Anticipated Discharge Date: Discharge Date: 03/14/2020 Expected LOS: Initial Reviewer: [email or web address] Initial Review Date: 03/13/2020 Generated: 03/14/20 5:31 pm Comments DCP- Discharge Planning Updated by [email or web address]: Karin Dyson on 03/14/20 1:[address] Patient Name: VIKAS ESCOBEDO Admission Status: ER Accout number: [id number] Admission Date: 03-12-2020 : 1965 Admission Diagnosis: Attending: FERNANDO BROWN Current LOS: 2 Anticipated DC Date: Planned Disposition: Home or Self Care Primary Insurance: MEDICARE PART A ONLY Discharge Planning Comments: CM MET WITH PATIENT TO ASSESS DISCHARGE NEEDS. SHE IS INDEPENDENT WITH HER CARE SHE DOES NOT WANT HOME HEALTH, DECLINATION SIGNED. SHE WILL CALL HER FRIEND, SON OR A TAXI TO TAKE HER HOME. SHE DOES NOT FEEL SHE NEEDS HH AT THIS TIME. Microsoft Architect: Karin Dyson DCPIA - Discharge Planning Initial Assessment Updated by [id number]: Karin Dyson on 03/14/20 2:49 pm * Is the patient Alert and Oriented? Yes * PCP [facility] IN [facility] * Pharmacy [facility] * Preadmission Environment Home with Family * ADLs Independent * Equipment None * List name and contact numbers for known caregivers / representatives who currently or will assist patient after discharge: LIO ( MOTHER) [phone] * Verbal permission to speak to the caregivers and representatives has been obtained from the patient. N/A * Community resources currently utilized None * Additional services required to return to the preadmission environment? No * Can the patient safely return to the preadmission environment? Yes * Has this patient been hospitalized within the prior 30 days at any hospital? Yes Last DP export: 03/14/20 1:53 p Patient Name: VIKAS ESCOBEDO Page 34423 at 1632 All edits/amendments must be made on the electronic document DICTATION DATE: 03/14/20 1631 CONFERENCE ASSISTANT: RAFA 03/14/20 1631 RPT#: [id number] DC DATE:03/14/20 STATUS: DIS IN [facility] [address] [place] [address] END OF REPORT
[2020-03-16 11:33] VITALS: Ht 162.6 cm; Wt 59.1 kg
== END 2020-03-14 16:21 | disposition home or self-care (01) | DRG 812 ==
LOC: D.ER 15:58 → D.EDHOLD 21:05 → D.MS 03-13 22:29
PROVIDERS: Family Medicine; ADMIT Family Medicine; ATTEND Family Medicine
DX: D50.9 Iron deficiency anemia, unspecified (principal); D46.9 Myelodysplastic syndrome, unspecified; K21.9 Gastro-esophageal reflux disease without esophagitis; G89.4 Chronic pain syndrome; Z87.891 Personal history of nicotine dependence

== ENCOUNTER 2020-04-09 18:13 | Inpatient (IN) | payer MEDICARE ==
[~2020-04-09] VITALS: Ht 162.6 cm; Wt 59.1 kg
[2020-04-09 18:38] VITALS: Ht 162.6 cm; Wt 59.1 kg
[2020-04-09 19:16] LABS: BASOPHILS 0.2 % (0-2); EOSINOPHILS 7.4 % (0-7); LYMPHOCYTES 11.4 % (15-50); MCH 20.2 pg (26.0-34.0); MCHC 26.5 g/dL (31.0-37.0); MCV 76.3 fL (80.0-100.0); MEAN PLATELET VOLUME 8.5 fL (7.4-10.4); MONOCYTES 15.9 % (2-11); NEUTROPHILS 65.1 % (40-80); RDW 19.8 % (11.5-14.5)
[2020-04-09 19:28] LABS: APTT 28.1 SECONDS (22.8-39.4); PROTIME 13.1 SECONDS (11.6-15.0)
[2020-04-09 19:30] LABS: CALC OSMOLALITY 272 mosm/kg (275-300); CALCIUM 7.9 mg/dL (8.5-10.1); CARBON DIOXIDE 26.2 mmol/L (21.0-32.0); CHLORIDE - SERUM 106 mmol/L (98-107); CREATININE - SERUM 0.6 mg/dL (0.6-1.3); GLUCOSE 93 mg/dL (74-106); POTASSIUM - SERUM 3.2 mmol/L (3.5-5.1); SODIUM 137 mmol/L (136-145); UREA NITROGEN 11 mg/dL (7-18); eGFR NON AFRICAN AMERICAN > 90 mL/min (90-120)
[2020-04-09 19:44] LABS: RBC 1.98 10x6/uL (4.00-5.40)
[2020-04-09 19:46] LABS: ALBUMIN 2.8 g/dL (3.4-5.0); ALKALINE PHOSPHATASE 68 U/L (30-120); ALT (SGPT) 13 U/L (10-68); BILIRUBIN - TOTAL 0.11 mg/dL (0.2-1.3); CKMB 1.3 U/L (0.0-3.6); CREATINE KINASE 42 UL (21-215); PROTEIN - SERUM 5.8 g/dL (6.4-8.2); TROPONIN-I < 0.017 ng/mL (0.000-0.060)
[2020-04-09 19:47] LABS: HEMATOCRIT 15.1 % (36.0-48.0); PLATELET COUNT 495 10x3/uL (130-400)
--- NOTE | 2020-04-09 20:50 | NUR ---
CONSENTS FOR BLOOD TRANSFUSION SIGNED AND PLACED ON CHART AT THIS TIME.
[2020-04-09 21:00] VITALS: BP 104/39
[2020-04-09 22:00] VITALS: BP 117/66
[2020-04-09 23:00] VITALS: BP 112/57
--- NOTE | 2020-04-09 23:01 | NUR ---
URINE SAMPLE OBTAINED AND SENT TO LAB
--- NOTE | 2020-04-09 23:03 | NUR ---
ORAL TEMP 98.1
--- NOTE | 2020-04-09 23:28 | NUR ---
PT PROVIDED WITH SANDWICH TRAY AND WATER AT THIS TIME.
[2020-04-09 23:47] LABS: BILIRUBIN NEGATIVE (NEGATIVE); KETONE NEGATIVE (NEGATIVE); NITRITE NEGATIVE (NEGATIVE); UROBILINOGEN NORMAL mg/dL (< 2)
[2020-04-10] VITALS (11 sets, daily range): BP systolic 104–145; BP diastolic 46–656
[2020-04-10 02:20] LABS: CARBON DIOXIDE 25.9 mmol/L (21.0-32.0)
[2020-04-10 02:21] LABS: POTASSIUM - SERUM 3.9 mmol/L (3.5-5.1)
--- NOTE | 2020-04-10 03:40 | NUR ---
PT ASSISTED TO THE RESTROOM AT THIS TIME.
--- NOTE | 2020-04-10 07:16 | NUR ---
REPORT GIVEN TO FERNANDA PADILLA
[2020-04-10 07:18] LABS: BASOPHILS 0 % (0-2); EOSINOPHILS 10.3 % (0-7); MCH 25.3 pg (26.0-34.0); MCHC 30.9 g/dL (31.0-37.0); MONOCYTES 15.4 % (2-11); NEUTROPHILS 53.3 % (40-80); PLATELET COUNT 417 10x3/uL (130-400); RDW 17.7 % (11.5-14.5); WBC 3.8 10x3/uL (4.8-10.8)
[2020-04-10 07:19] LABS: HEMATOCRIT 25.6 % (36.0-48.0); HEMOGLOBIN 7.9 g/dL (12-16); MCV 82.1 fL (80.0-100.0); RBC 3.12 10x6/uL (4.00-5.40)
--- NOTE | 2020-04-10 07:30 | NUR ---
ASSUMED CARE OF PT. RESTING IN BED WITH EYES CLOSED. AROUSES EASILY WHEN NAME CALLED. RESP EVEN/UNLABORED. NAD NOTED. VSS
[2020-04-10 07:50] LABS: ALBUMIN 2.7 g/dL (3.4-5.0); ALKALINE PHOSPHATASE 68 U/L (30-120); ALT (SGPT) 12 U/L (10-68); BILIRUBIN - TOTAL 0.32 mg/dL (0.2-1.3); CALC OSMOLALITY 280 mosm/kg (275-300); CALCIUM 7.6 mg/dL (8.5-10.1); CARBON DIOXIDE 24.6 mmol/L (21.0-32.0); CHLORIDE - SERUM 109 mmol/L (98-107); CREATININE - SERUM 0.5 mg/dL (0.6-1.3); GLUCOSE 111 mg/dL (74-106); MAGNESIUM - SERUM 1.9 mg/dL (1.8-2.4); PHOSPHOROUS 3.1 mg/dL (2.5-4.9); POTASSIUM - SERUM 3.8 mmol/L (3.5-5.1); PROTEIN - SERUM 5.4 g/dL (6.4-8.2); SODIUM 141 mmol/L (136-145); UREA NITROGEN 10 mg/dL (7-18); eGFR NON AFRICAN AMERICAN > 90 mL/min (90-120)
--- NOTE | 2020-04-10 08:33 | NUR ---
breakfast served. pt c/o pain and requesting pain meds
--- NOTE | 2020-04-10 09:14 | NUR ---
BS REPORT TO DEREJE, RN
--- NOTE | 2020-04-10 09:17 | NUR ---
PT BLOD TRANSFUSION STOPPED AT THIS TIME.
--- NOTE | 2020-04-10 09:27 | NUR ---
pt laying in bed. no distress noted. respirations are even and unlabored. pt repositioned in bed. pt reports improvement in pain with pain medication. call light in reach. pt voices no needs at this time. will continue to monitor.
--- NOTE | 2020-04-10 10:48 | NUR ---
PT LAYING IN BED RESTING WITH EYES CLOSED. NO DISTRESS NOTED VSS RESPIRATIONS ARE EVEN AND UNLABORED. WILL CONTINUE TO MONITOR.
--- NOTE | 2020-04-10 11:45 | NUR ---
PT PROVIDED WITH MEAL TRAY.
--- NOTE | 2020-04-10 13:47 | NUR ---
CALL REPORT TO CHRISTINA
--- NOTE | 2020-04-10 14:14 | NUR ---
PATIENT REMAINS IN ER,BUT WAS ASSIGNED A BED IN ROOM 2232. SHE NEVER CAME TO OUR UNIT. I ASSISTED ER WITH DISCHARGE PAPERWORK.
[2020-04-10 14:22] LABS: BASOPHILS 0 % (0-2); EOSINOPHILS 13.3 % (0-7); HEMATOCRIT 26.5 % (36.0-48.0); HEMOGLOBIN 8.1 g/dL (12-16); IMMATURE GRANULOCYTES 0.3 % (0-5); LYMPHOCYTES 15.7 % (15-50); MCH 25.2 pg (26.0-34.0); MCHC 30.6 g/dL (31.0-37.0); MCV 82.3 fL (80.0-100.0); MEAN PLATELET VOLUME 9.1 fL (7.4-10.4); MONOCYTES 12.3 % (2-11); NEUTROPHILS 58.4 % (40-80); PLATELET COUNT 352 10x3/uL (130-400); RBC 3.22 10x6/uL (4.00-5.40); RDW 17.4 % (11.5-14.5); WBC 3.3 10x3/uL (4.8-10.8)
--- NOTE | 2020-04-10 16:02 | NUR ---
NS STOPPED AT THIS TIME.
== END 2020-04-10 16:02 | disposition home or self-care (01) | DRG 812 ==
LOC: D.ER 18:13 → D.EDHOLD 20:21 → D.MS 04-10 13:37 → D.EDHOLD 04-10 14:20
PROVIDERS: Family Medicine; ADMIT Family Medicine; ATTEND Family Medicine
DX: D50.9 Iron deficiency anemia, unspecified (principal); D46.9 Myelodysplastic syndrome, unspecified; E87.6 Hypokalemia; K21.9 Gastro-esophageal reflux disease without esophagitis; Z87.891 Personal history of nicotine dependence

== ENCOUNTER 2020-12-11 23:14 | Inpatient (IN) | payer MEDICARE ==
[~2020-12-11] VITALS: Ht 162.6 cm; Wt 59.1 kg
[2020-12-11 23:55] LABS: WBC 3.7 10x3/uL (4.8-10.8)
[2020-12-11 23:56] LABS: BASOPHILS 0.9 % (0-2); EOSINOPHILS 10.1 % (0-7); LYMPHOCYTES 13.9 % (15-50); MCHC 28.9 g/dL (31.0-37.0); MEAN PLATELET VOLUME 7.9 fL (7.4-10.4); NEUTROPHILS 60.1 % (40-80); RBC 2.37 10x6/uL (4.00-5.40); RDW 23.1 % (11.5-14.5)
[2020-12-12] VITALS (8 sets, daily range): BP systolic 101–126; BP diastolic 43–69; Ht 162.6 cm; Wt 59.1 kg
[2020-12-12 00:08] LABS: CALC OSMOLALITY 275 mosm/kg (275-300); CALCIUM 8.1 mg/dL (8.5-10.1); CHLORIDE - SERUM 102 mmol/L (98-107); CREATININE - SERUM 0.6 mg/dL (0.6-1.3); GLUCOSE 100 mg/dL (74-106); POTASSIUM - SERUM 3.5 mmol/L (3.5-5.1); SODIUM 139 mmol/L (136-145); UREA NITROGEN 7 mg/dL (7-18); eGFR NON AFRICAN AMERICAN > 90 mL/min (90-120)
[2020-12-12 00:14] LABS: ALKALINE PHOSPHATASE 79 U/L (30-120); ALT (SGPT) 13 U/L (10-68); BILIRUBIN - TOTAL 0.14 mg/dL (0.2-1.3); HEMATOCRIT 16.2 % (36.0-48.0); HEMOGLOBIN 4.7 g/dL (12-16); LIPASE 66 U/L (73-393); MCH 19.7 pg (26.0-34.0); PLATELET COUNT 616 10x3/uL (130-400)
--- NOTE | 2020-12-12 01:00 | NUR ---
ADMITTED TO ROOM FROM ER ALERT AND ORIENTIATED, C/O N/V X SEVERAL DAYS, ZOFRAN GIVEN ORDERED, LEFT INFUSA PORT ACCESSED FROM ER, FLUSHED WITHOUT DIFFICULTY, TEARFUL REPORTS FEELING SHAKEY ON INSIDE, RECIEVED ATIVAN IN ER, SEE ASSESSMENT, CALL [place]
--- NOTE | 2020-12-12 01:30 | NUR ---
1ST UNIT OF BLOOD STARTED, NO S/S OF REACTION
--- NOTE | 2020-12-12 04:57 | NUR ---
2ND UNIT OF BLOOD STARTED ,
--- NOTE | 2020-12-12 09:00 | NUR ---
PT RESTING IN BED WITH EYES CLOSED. EASILY AWAKENS WITH NAME CALLED. REPORTS PAIN 6/10 AT THIS TIME, BUT THEN DOSES BACK OFF TO SLEEP. PT IS TEARFUL THROUGHOUT CONVERSATION, SHE RECENTLY HAD A OF HER MOTHER. LEFT CHEST PORT ACCESSED AND SALINE LOC EASILY FLUSHED, GOOD BLOOD RETURN. SITE WITHOUT REDNESS OR EDEMA. DENIES FURTHER NEEDS AT THIS TIME. CL WITHIN REACH. ENCOURAGED TO CALL WITH NEEDS. CONTINUE POC
[2020-12-12 09:43] LABS: MEAN PLATELET VOLUME 8.1 fL (7.4-10.4); MONOCYTES 13.3 % (2-11)
[2020-12-12 09:44] LABS: BASOPHILS 0.4 % (0-2); EOSINOPHILS 8.5 % (0-7); HEMATOCRIT 23.3 % (36.0-48.0); LYMPHOCYTES 10.8 % (15-50); MCH 23.5 pg (26.0-34.0); MCHC 31.1 g/dL (31.0-37.0); RBC 3.09 10x6/uL (4.00-5.40); RDW 24.9 % (11.5-14.5); WBC 4.4 10x3/uL (4.8-10.8)
[2020-12-12 09:45] LABS: MCV 75.5 fL (80.0-100.0); PLATELET COUNT 471 10x3/uL (130-400)
[2020-12-12 09:47] LABS: HEMOGLOBIN 7.2 g/dL (12-16)
[2020-12-12 15:17] LABS: APTT 29.3 SECONDS (22.8-39.4); INR 1.09 (0.85-1.17)
[2020-12-12] MEDS ORDERED: FEXOFENADINE HC60 MG PO (16:34)
--- NOTE | 2020-12-12 20:00 | NUR ---
RESTIGN IN BED , BLOOD INFUSING WITHOUT DIFFICULTY, REPORTS GENERALIZED PAIN AND ANXIETY, SEE SHIFT ASSESSMENT, CALL LIGHT IN REACH
[2020-12-12 22:13] LABS: HEMATOCRIT 31.6 % (36.0-48.0); HEMOGLOBIN 10.3 g/dL (12-16)
--- NOTE | 2020-12-12 22:45 | NUR ---
BLOOD FINISHED H&H DRAWN, DISCHARGE INSTRUCTIONS GIVEN, PORT FLUSED AND BRIAN NEEDLE REMOVED, FRIEND HERE TO DRIVE HOME
== END 2020-12-12 22:57 | disposition home or self-care (01) | DRG 812 ==
LOC: D.ER 23:14 → D.MS 12-12 00:40 → OBSVTIME 12-12 00:45 → D.MS 12-12 12:55
PROVIDERS: Family Medicine; ADMIT Emergency Medicine; ATTEND Emergency Medicine
DX: D50.9 Iron deficiency anemia, unspecified (principal); D61.818 Other pancytopenia; D46.9 Myelodysplastic syndrome, unspecified; F43.21 Adjustment disorder with depressed mood; K21.9 Gastro-esophageal reflux disease without esophagitis

== ENCOUNTER 2021-01-04 22:35 | Inpatient (IN) | payer MEDICARE ==
[~2021-01-04] VITALS: Ht 162.6 cm; Wt 61.4 kg
[~2021-01-04 22:35] MED LIST changes: +FEXOFENADINE HC60 MG PO
[2021-01-04 23:58] VITALS: BP 117/62
[2021-01-05 00:22] LABS: BASOPHILS 3.8 % (0-2); EOSINOPHILS 3.3 % (0-7); LYMPHOCYTES 5.3 % (15-50); MCH 20.2 pg (26.0-34.0); MCHC 28.7 g/dL (31.0-37.0); MCV 70.3 fL (80.0-100.0); MEAN PLATELET VOLUME 8.1 fL (7.4-10.4); MONOCYTES 10.6 % (2-11); PLATELET COUNT 426 10x3/uL (130-400); RBC 2.14 10x6/uL (4.00-5.40); RDW 23.7 % (11.5-14.5); WBC 6.4 10x3/uL (4.8-10.8)
[2021-01-05 00:31] LABS: HEMATOCRIT 15.1 % (36.0-48.0); HEMOGLOBIN 4.3 g/dL (12-16)
[2021-01-05 00:34] LABS: CALC OSMOLALITY 277 mosm/kg (275-300); CALCIUM 7.6 mg/dL (8.5-10.1); CARBON DIOXIDE 25.9 mmol/L (21.0-32.0); CHLORIDE - SERUM 106 mmol/L (98-107); CREATININE - SERUM 0.6 mg/dL (0.6-1.3); GLUCOSE 124 mg/dL (74-106); POTASSIUM - SERUM 3.1 mmol/L (3.5-5.1); SODIUM 139 mmol/L (136-145); UREA NITROGEN 9 mg/dL (7-18); eGFR NON AFRICAN AMERICAN > 90 mL/min (90-120)
[2021-01-05 00:49] LABS: ALBUMIN 2.8 g/dL (3.4-5.0); ALKALINE PHOSPHATASE 72 U/L (30-120); ALT (SGPT) 14 U/L (10-68); BILIRUBIN - TOTAL 0.08 mg/dL (0.2-1.3); CKMB 0.7 U/L (0.0-3.6); CREATINE KINASE 39 UL (21-215); PRO BNP 276 pg/mL (0-125); PROTEIN - SERUM 5.6 g/dL (6.4-8.2); TROPONIN-I < 0.017 ng/mL (0.000-0.060)
[2021-01-05 05:53] LABS: BASOPHILS 0.5 % (0-2); EOSINOPHILS 6.7 % (0-7); HEMATOCRIT 20.5 % (36.0-48.0); HEMOGLOBIN 6.3 g/dL (12-16); MCH 22.4 pg (26.0-34.0); MCHC 30.4 g/dL (31.0-37.0); MEAN PLATELET VOLUME 7.4 fL (7.4-10.4); MONOCYTES 10.8 % (2-11); RBC 2.79 10x6/uL (4.00-5.40); RDW 23.1 % (11.5-14.5); WBC 5.5 10x3/uL (4.8-10.8)
[2021-01-05 05:54] LABS: MCV 73.6 fL (80.0-100.0); PLATELET COUNT 546 10x3/uL (130-400)
[2021-01-05 06:27] LABS: ALBUMIN 2.8 g/dL (3.4-5.0); ALKALINE PHOSPHATASE 76 U/L (30-120); ALT (SGPT) 12 U/L (10-68); BILIRUBIN - TOTAL 0.22 mg/dL (0.2-1.3); CALC OSMOLALITY 277 mosm/kg (275-300); CALCIUM 7.7 mg/dL (8.5-10.1); CARBON DIOXIDE 30.1 mmol/L (21.0-32.0); CHLORIDE - SERUM 107 mmol/L (98-107); CKMB 0.7 U/L (0.0-3.6); CREATINE KINASE 41 UL (21-215); CREATININE - SERUM 0.6 mg/dL (0.6-1.3); GLUCOSE 103 mg/dL (74-106); POTASSIUM - SERUM 3.5 mmol/L (3.5-5.1); PROTEIN - SERUM 5.7 g/dL (6.4-8.2); SODIUM 140 mmol/L (136-145); TROPONIN-I < 0.017 ng/mL (0.000-0.060); UREA NITROGEN 10 mg/dL (7-18); eGFR NON AFRICAN AMERICAN > 90 mL/min (90-120)
--- NOTE | 2021-01-05 08:16 | NUR ---
PATIENT RECIEVING 3RD UNIT OF BLOOD, TOLERATING WELL, NO NEEDS AT THIS TIME CALL LIGHT WITHIN REACH AND BED IN LOWEST LOCKED POSITION.
--- NOTE | 2021-01-05 10:00 | NUR ---
RECEIVED TO ROOM 2223 VIA WC FROM ER. A/O X3. TRANSFUSION IN PROGRESS AT THIS TIME. VSS. DENIES NEEDS. SKIN INTACT WTIHOUT REDNESS
--- NOTE | 2021-01-05 10:05 | NUR ---
TRANSFUSION COMPLETED WITHOUT SIGNS OF REACTION. LEFT PORT FLUSHED PER PROTOCAL. DENIES NEEDS. VSS.
[2021-01-05 10:09] VITALS: BP 138/70; BMI 23.2
[2021-01-05 12:05] VITALS: Ht 162.6 cm; Wt 61.4 kg
--- NOTE | 2021-01-05 12:19 | NUR ---
REQUESTED AND GIVEN 1MG DILAUDID SLOW IVP FOR C/O BILATERAL LEG PAIN. WILL MONITOR. LUNCH SERVED IN ROOM.
[2021-01-05 13:02] VITALS: BP 135/76
[2021-01-05 14:28] LABS: CKMB 0.9 U/L (0.0-3.6); CREATINE KINASE 39 UL (21-215)
[2021-01-05 14:34] LABS: TROPONIN-I < 0.017 ng/mL (0.000-0.060)
[2021-01-05 17:27] VITALS: BP 128/72
[2021-01-05 20:00] VITALS: BP 127/68; BP 127/8
--- NOTE | 2021-01-05 20:45 | NUR ---
UP AMBULATING IN HALLWAY. ALERT.ORIENTED. NO DISTRESS NOTED. RESP UNALBORED. SL INTACT WITHOUT REDNESS OR EDEMA NOTED.
--- NOTE | 2021-01-05 23:30 | NUR ---
I have reviewed this patient and I concur with the Shift Assessment completed by the Licensed Practical Nurse today this shift.
[2021-01-06] VITALS: BP 113/63; BP 129/70
--- NOTE | 2021-01-06 02:08 | NUR ---
I have reviewed this patient and I concur with the Shift Assessment completed by the Licensed Practical Nurse today this shift.
[2021-01-06 04:00] VITALS: BP 113/63
[2021-01-06 07:27] LABS: BASOPHILS 0.4 % (0-2); EOSINOPHILS 11.7 % (0-7); HEMOGLOBIN 8.1 g/dL (12-16); LYMPHOCYTES 13.3 % (15-50); MCH 23.7 pg (26.0-34.0); MCHC 31.6 g/dL (31.0-37.0); MEAN PLATELET VOLUME 7.7 fL (7.4-10.4); MONOCYTES 12.6 % (2-11); PLATELET COUNT 522 10x3/uL (130-400); WBC 4.4 10x3/uL (4.8-10.8)
[2021-01-06 07:40] LABS: ALBUMIN 2.9 g/dL (3.4-5.0); ALKALINE PHOSPHATASE 82 U/L (30-120); ALT (SGPT) 14 U/L (10-68); BILIRUBIN - TOTAL 0.15 mg/dL (0.2-1.3); CALC OSMOLALITY 279 mosm/kg (275-300); CALCIUM 8.3 mg/dL (8.5-10.1); CARBON DIOXIDE 28.9 mmol/L (21.0-32.0); CHLORIDE - SERUM 107 mmol/L (98-107); CREATININE - SERUM 0.6 mg/dL (0.6-1.3); GLUCOSE 104 mg/dL (74-106); MAGNESIUM - SERUM 1.9 mg/dL (1.8-2.4); PHOSPHOROUS 4.3 mg/dL (2.5-4.9); POTASSIUM - SERUM 3.8 mmol/L (3.5-5.1); PROTEIN - SERUM 5.9 g/dL (6.4-8.2); SODIUM 141 mmol/L (136-145); UREA NITROGEN 11 mg/dL (7-18); eGFR NON AFRICAN AMERICAN > 90 mL/min (90-120)
[2021-01-06 07:46] LABS: HEMATOCRIT 25.8 % (36.0-48.0); RBC 3.44 10x6/uL (4.00-5.40)
[2021-01-06 09:25] VITALS: BP 131/59
--- NOTE | 2021-01-06 10:52 | NUR ---
PER NOTE, ADMINISTER BENADRYL BEFORE BLOOD ADMINISTERED, PATIENT STATED THAT SHE IS UNABLE TO TAKE BENADRYL IT GIVES HER THE HEEBIE GRISELDA, WILL NOT ADMINISTER, CONTINUE WITH PLAN OF CARE
[2021-01-06 12:45] VITALS: BP 121/64
--- NOTE | 2021-01-06 12:49 | NUR ---
I have reviewed this patient and I concur with the Shift Assessment completed by the Licensed Practical Nurse today this shift.
--- NOTE | 2021-01-06 13:29 | NUR ---
PATIENT ROOM IS VERY HUMID, YOLANDA HAS COLD WASH CLOTH ON HEAD, WORK ORDER PLACED, PATIENT STATES SHE FEELS SOB, WILL ADMINISTER LASIX BEFORE ADMINISTERING NEXT UNIT
--- NOTE | 2021-01-06 17:39 | NUR ---
PATIENT BLOOD COMPLETED, WENT OVER DC PAPERWORK WELL FOLLOW UP APPOINTMENTS. PORT ACCESS DC BY FERNANDA NICE. PATIENT TAKEN TO ER ENTRANCE WHERE RIDE AWAITS BY KARLA
== END 2021-01-06 17:51 | disposition home or self-care (01) | DRG 810 ==
LOC: D.ER 22:35 → D.EDHOLD 01-05 02:42 → D.MS 01-05 02:42 → OBSVTIME 01-05 02:42 → D.MS 01-05 09:08
PROVIDERS: Emergency Medicine; Family Medicine; ADMIT Family Medicine; ATTEND Family Medicine
DX: D61.9 Aplastic anemia, unspecified (principal); K21.9 Gastro-esophageal reflux disease without esophagitis; R06.00 Dyspnea, unspecified; F43.21 Adjustment disorder with depressed mood

== ENCOUNTER 2021-01-13 23:24 | Emergency (ER) | payer MEDICARE ==
[~2021-01-13] VITALS: Ht 162.6 cm; Wt 61.4 kg
[2021-01-13 23:27] VITALS: Ht 162.6 cm; Wt 61.4 kg
[2021-01-13 23:57] LABS: BASOPHILS 0.3 % (0-2); EOSINOPHILS 10.1 % (0-7); HEMATOCRIT 26.3 % (36.0-48.0); HEMOGLOBIN 8.2 g/dL (12-16); LYMPHOCYTES 14.5 % (15-50); MCH 24.3 pg (26.0-34.0); MCHC 31.3 g/dL (31.0-37.0); MCV 77.8 fL (80.0-100.0); MEAN PLATELET VOLUME 7.4 fL (7.4-10.4); MONOCYTES 13.1 % (2-11); RBC 3.38 10x6/uL (4.00-5.40); RDW 23.3 % (11.5-14.5); WBC 4.9 10x3/uL (4.8-10.8)
[2021-01-13 23:58] LABS: PLATELET COUNT 303 10x3/uL (130-400)
[2021-01-14 00:13] LABS: CARBON DIOXIDE 26.3 mmol/L (21.0-32.0); CREATININE - SERUM 0.9 mg/dL (0.6-1.3); POTASSIUM - SERUM 3.3 mmol/L (3.5-5.1)
[2021-01-14 00:15] LABS: APTT 30.3 SECONDS (22.8-39.4); INR 1.08 (0.85-1.17)
[2021-01-14 00:17] LABS: ALBUMIN 3.3 g/dL (3.4-5.0); BILIRUBIN - TOTAL 0.16 mg/dL (0.2-1.3); PROTEIN - SERUM 6.4 g/dL (6.4-8.2)
[2021-01-14 01:17] VITALS: BP 132/75
== END 2021-01-14 01:15 | disposition home or self-care (01) ==
LOC: D.ER 23:24
PROVIDERS: Family Medicine
DX: R04.0 Epistaxis (principal); E87.6 Hypokalemia; D46.9 Myelodysplastic syndrome, unspecified; K21.9 Gastro-esophageal reflux disease without esophagitis; G89.29 Other chronic pain